=== PATIENT | male | born 1945 | race Caucasian/White ===

== ENCOUNTER 2016-09-12 09:10 | Day surgery (SDC) | payer OTHER, BC ==
[2016-09-07 13:09] VITALS: BMI 28.3
[~2016-09-12 09:10] MED LIST: BUPIVACAINE HCL/PF 0.5% (5MG/ML) 10 ML VIAL IJ ONE; LIDOCAINE HCL 1%, 10 MG/ML (20ML VIAL) IJ ONE
[2016-09-12 09:35] VITALS: TEMP 97.7
[2016-09-12] MEDS ORDERED: BUPIVACAINE HCL/PF 0.5% (5MG/ML) 10 ML VIAL ONE (10:23)
[2016-09-12] MEDS ORDERED: LIDOCAINE HCL 1%, 10 MG/ML (20ML VIAL) ONE (10:23)
[2016-09-12] MEDS ORDERED: oxyCODONE HCL 5 MG TABLET PO PRN (10:35)
[2016-09-12] MEDS ORDERED: ONDANSETRON 4 MG/2 ML VIAL IVPUSH PRN (10:35)
[2016-09-12] MEDS ORDERED: PROMETHAZINE HCL 25 MG/1 ML VIAL IVPUSH PRN (10:35)
[2016-09-12] MEDS ORDERED: PROPOFOL 20 ML ONE (10:43)
[2016-09-12] MEDS ORDERED: MIDAZOLAM HCL 2 MG/2 ML SINGLE DOSE VIAL ONE (10:43)
[2016-09-12] MEDS ORDERED: SUCCINYLCHOLINE CHLORIDE 200 MG/10 ML VIAL ONE (10:43)
[2016-09-12] MEDS ORDERED: ceFAZolin SODIUM 1 GM VIAL IVPB ONE (11:05)
[2016-09-12] MEDS ORDERED: LIDOCAINE HCL 1%, 10 MG/ML (20ML VIAL) IJ ONE (11:11)
[2016-09-12] MEDS ORDERED: LIDOCAINE HCL 1%, 10 MG/ML (20ML VIAL) NR ONE (11:11)
[2016-09-12] MEDS ORDERED: BUPIVACAINE HCL/PF 0.5% (5MG/ML) 10 ML VIAL IJ ONE ×2 (11:11)
--- NOTE | 2016-09-12 11:56 | OP ---
Operative Note - Note: Operative Date: 09/12/16 Pre-Operative Diagnosis: right CTS Operation: right CTR Post-Operative Diagnosis: Same as Pre-op Surgeon: Asher Hinton Anesthesiologist/MULTIFOCAL BUTTON GENERATOR: Cece Obrien MD Anesthesia: General, Local Specimens Removed: tenosynovium Estimated Blood Loss (mls): 0 Drains, Volume Out (mls): 0 Blood Volume Replaced (mls): 0 Fluid Volume Replaced (mls): 500 Operative Report Dictated: Yes
[2016-09-12 13:18] VITALS: BP 138/85; PULSE 56
--- NOTE | 2016-09-12 13:35 | SPEC ---
DATE OF OPERATION: 09/12/2016 PREOPERATIVE DIAGNOSIS: Right carpal tunnel syndrome and tenosynovitis. POSTOPERATIVE DIAGNOSIS: Right carpal tunnel syndrome and tenosynovitis. PROCEDURES: Right carpal tunnel release and tenosynovectomy. SURGEON: Asher Hinton MD ASSISTANTS: None. ANESTHESIA: MAC, local injection of 12 mL of 0.5% Marcaine and 1% lidocaine mix. ANESTHESIOLOGIST: Cece Obrien MD DRAINS: None. COMPLICATIONS: None. SPECIMEN: Tenosynovium, right wrist. BLOOD LOSS: None. BLOOD GIVEN: None. FLUID REPLACEMENT: 500 mL. INDICATIONS: This patient is a 71-year-old male with a preoperative diagnosis of right carpal tunnel syndrome and tenosynovitis. After understanding the potential risks, complications, alternatives and benefits of surgery versus nonsurgical treatment, the patient elected to undergo this procedure. DESCRIPTION OF PROCEDURE: The patient was brought to the operating room, peripheral IV placed and intravenous sedation was given. One gram of intravenous Ancef was given. MAC anesthesia was induced. A tourniquet was applied to the right upper arm and the right upper extremity was prepped and draped in sterile fashion. The entire case was done under 3.8 loupe magnification. A marking pen was utilized to elvira out a longitudinal incision in an already existing skin crease. Twenty mL of 0.5% Marcaine mixed with 1% lidocaine was injected in and around the surgical incision. The right upper extremity was elevated, exsanguinated with an Esmarch bandage, and the tourniquet inflated to 250 mmHg. A No. 15 scalpel blade was utilized to cut down through the skin. Subcutaneous hemostasis was achieved with the bipolar cautery. Dissection was done through the superficial palmar fascia. Self-retaining retractors were placed into the wound. Under direct visualization, the transverse carpal ligament was transected with a No. 15 scalpel blade, exposing the median nerve and the contents of the carpal tunnel. The distal and proximal extents of the release were completed with a Littler scissors and checked with irrigation and my small finger. They were seen to be complete. Limited dissection was done on the radial side of the median nerve and more extensive dissection was done on the ulnar side of the median nerve. The patients nerve was seen to be quite compressed by epineurium and therefore a limited epineurotomy was performed. A Ragnell retractor was used to gently retract the median nerve in a radial direction. The patient had a lot of tenosynovitis and therefore a tenosynovectomy was performed off all 9 flexor tendons. This was passed off the field as tenosynovium right wrist. The floor of the carpal tunnel was checked. There were no abnormal masses or ganglion cysts. The area was copiously irrigated and washed out and closure begun. Undyed 4-0 Vicryl was used to close the deep dermal layer. Final skin reapproximation was done with horizontal mattress 4-0 nylon sutures. The area was then washed and dried, covered with Xeroform, 4 x 4's, fluffs between the fingers, Webril and a 4-inch plaster roll was utilized to make a volar splint, which was then wrapped with Anton and Coban. The tourniquet was taken down after a total tourniquet time of 16 minutes. There were no complications during the case. The patient tolerated the procedure quite well and was brought to the ambulatory recovery room in stable condition. Patricia [id number]
--- NOTE | 2016-09-13 12:53 | PATH ---
Surgical Pathology Report Patient Name: RE CA [facility]. Rec. #: [id number] /Age/Gender: 1945 (Age: 71) / M Account: [id number] Location: [facility] Taken: 09/12/2016 Received: 09/12/2016 Reported: 09/13/2016 Physicians: Asher Hinton M.D. Specimen(s) Received TENOSYNOVIUM Clinical History Carpal tunnel right hand Final Diagnosis SOFT TISSUE, RIGHT HAND, TENOSYNOVIUM, CARPAL TUNNEL RELEASE: BENIGN TENOSYNOVIAL FIBROCONNECTIVE TISSUE WITH MYXOID DEGENERATION. Electronically Signed Williams Dailey M.D. Gross Description Received in formalin labeled "tenosynovium" is a 1.8 x 1.7 x 0.3 cm aggregate of morales-yellow, irregular portions of soft tissue, consistent with tenosynovium. This specimen is submitted in toto in one cassette. 09/12/201609/12/2016
== END 2016-09-12 13:22 | disposition home or self-care (01) ==
LOC: JASU-SURG 09:10
PROVIDERS: ATTEND Orthopaedic Surgery
PROC: 0LB50ZZ Excision of Right Lower Arm and Wrist Tendon, Open Approach (ICD-10-PCS; 2016-09-12)
PROC: 0LB70ZZ Excision of Right Hand Tendon, Open Approach (ICD-10-PCS; 2016-09-12)
PROC: 01N50ZZ Release Median Nerve, Open Approach (ICD-10-PCS; principal; 2016-09-12 10:30)
DX: G56.01 Carpal tunnel syndrome, right upper limb (principal); M65.9 Synovitis and tenosynovitis, unspecified
CPT/HCPCS: 88304-TC; 94760

== ENCOUNTER 2018-07-14 19:45 | Emergency (ER) | payer OTHER, BC ==
[2018-07-14] MEDS ORDERED: ACETAMINOPHEN 325 MG TABLET (FP) ONE (20:00)
[2018-07-14] MEDS ORDERED: SODIUM CHLORIDE 1,000 ML IV STA (20:03)
[2018-07-14] MEDS ORDERED: ACETAMINOPHEN 325 MG TABLET (FP) PO ONE (20:04)
--- NOTE | 2018-07-14 20:04 | PDOC ---
History of Present Illness - General Chief Complaint: Urinary Problem Stated Complaint: FEVER,URINARY PROBLEM Time Seen by Provider: 07/14/18 19:47 - History of Present Illness Initial Comments: 07/14/18 20:15 This 73 y.o man with a hx of DM, HTN, HLD, colon cancer(1988) who was referred here from Dr Green's office with probable UTI and fever to 102F. Since patient' s RT and chemo for colon ca, he has had urinary bladder dysfunction requiring self catheterization. He noted fever last night and cloudy urine today with fever measured to 102F with some shaking chills. Other than decreased appetite and haedache, he currently has no complaints. He states that he has had occasional UTIs (about 2-3 a year) since he began catheterizing. He had one admission for UTI related sepsis about 4 years ago. He has been seen by Dr Mckeon in the past; briefly had urinary bladder stimulator which was ineffective and was removed Past History - Past Medical History Allergies/Adverse Reactions: Allergies Allergy/AdvReac Type Severity Reaction Status Date / Time No Known Allergies Allergy Verified 07/14/18 20:02 Home Medications: Ambulatory Orders Metoprolol Succinate 25 mg PO 1/2 TAB DAILY tablet 02/11/15 Ascorbic Acid [Vitamin C] 500 mg PO DAILY 11/16/15 Multivitamin [Poly-Vitamin] 1 each PO DAILY 11/16/15 Aspirin [ASA -] 81 mg PO DAILY 09/07/16 Bimatoprost [Lumigan] 1 drop OU DAILY 09/07/16 Levofloxacin [Levaquin] 750 mg PO DAILY #10 tablet 07/15/18 Anemia: No Asthma: No Cancer: Yes (COLON 1988;FOLLOWED WITH CHEMO AND RT) Cardiac Disorders: No CVA: No COPD: No CHF: No Dementia: No Diabetes: No GI Disorders: Yes (HX GASTRITIS H/O COLON CANCER) Disorders: Yes (CATHETERIZES OF BLADDER) HTN: Yes Hypercholesterolemia: Yes Liver Disease: No Seizures: No Thyroid Disease: No - Surgical History Abdominal Surgery: Yes (1988 COLON RESCETION) Appendectomy: No Cardiac Surgery: No Cholecystectomy: No Lung Surgery: No Neurologic Surgery: No Orthopedic Surgery: Yes (LEFT KNEE SURGERY) - Suicide/Smoking/Psychosocial Hx Smoking History: Former smoker Have you smoked in the past 12 months: No Number of Cigarettes Smoked Daily: 0 If you are a former smoker, when did you quit?: 1972 Hx Alcohol Use: Yes Drug/Substance Use Hx: No Substance Use Type: Alcohol Hx Substance Use Treatment: No *Physical Exam - Physical Exam Comments: GENERAL: Awake, alert, and fully oriented, in no acute distress HEAD: No signs of trauma EYES: PERRLA, EOMI, sclera anicteric, conjunctiva clear ENT: Auricles normal inspection, hearing grossly normal, nares patent, oropharynx clear without exudates. Moist mucosa NECK: Normal ROM, supple, no lymphadenopathy, JVD, or masses LUNGS: Breath sounds equal, clear to auscultation bilaterally. No wheezes, and no crackles HEART: Regular rate and rhythm, normal S1 and S2, no murmurs, rubs or gallops ABDOMEN: Soft, nontender, normoactive bowel sounds. No guarding, no rebound. No masses EXTREMITIES: Normal range of motion, no edema. No clubbing or cyanosis. No cords, erythema, or tenderness NEUROLOGICAL: Cranial nerves II through XII grossly intact. Normal speech, normal gait SKIN: Warm, Dry, normal turgor, no rashes or lesions noted. ED Treatment Course - LABORATORY CBC & Chemistry Diagram: 07/14/18 20:09 07/14/18 20:09 *DC/Admit/Observation/Transfer Diagnosis at time of Disposition: Bladder dysfunction UTI (urinary tract infection) Qualifiers: Urinary tract infection type: site unspecified Hematuria presence: without hematuria Qualified Code(s): N39.0 - Urinary tract infection, site not specified - Discharge Dispostion Disposition: HOME Condition at time of disposition: Stable Decision to Admit order: No - Prescriptions Prescriptions: Levofloxacin [Levaquin] 750 mg PO DAILY #10 tablet - Referrals Referrals: Keenan Green MD [Primary Care Provider] - - Patient Instructions Printed Discharge Instructions: Urinary Tract Infection Additional Instructions: drink plenty of water Levaquin 750 mg daily for 10 days return to ER if you have persistent fever or develop abdominal/flank pain/ vomiting followup with Dr Green within 48 hours - Post Discharge Activity
[2018-07-14 20:28] LABS: HEMATOCRIT 43.8 % (35.4-49); HEMOGLOBIN 14.8 GM/dl (11.7-16.9); MCH 28.3 pg (25.7-33.7); MCHC 33.8 g/dl (32.0-35.9); MEAN CELL VOLUME 83.8 fl (80-96); MEAN PLT VOLUME 9.1 fl (7.5-11.1); PLATELET COUNT 138 K/MM3 (134-434); RBC 5.22 M/mm3 (4.00-5.60); RDW 13.2 % (11.9-15.9); WHITE BLOOD COUNT 11.1 K/mm3 (4.0-10.8)
[2018-07-14 20:35] LABS: INR 1.27 (0.82-1.09); PROTHROMBIN TIME (PATIENT) 14.1 SEC (10.2-13.0)
[2018-07-14 20:40] LABS: ALBUMIN 3.8 g/dl (3.4-5.0); ALK PHOS 59 U/L (45-117); ANION GAP 14 MMOL/L (8-16); BILIRUBIN,TOTAL 1.6 mg/dl (0.2-1); BLOOD UREA NITROGEN 16 mg/dl (7-18); CALCIUM 9.2 mg/dl (8.5-10); CHLORIDE 98 mmol/L (98-107); CO2 23 mmol/L (21-32); CREATININE 1.2 mg/dl (0.55-1.3); GLUCOSE,RANDOM 130 mg/dl (74-106); POTASSIUM 3.8 mmol/L (3.5-5.1); SGOT/AST 21 U/L (15-37); SGPT/ALT 26 U/L (13-61); SODIUM 135 mmol/L (136-145); TOT PROT 7.1 g/dl (6.4-8.2)
[2018-07-14 20:43] VITALS: BMI 27.9
[2018-07-14] MEDS ORDERED: PIPERACILLIN/TAZOB 4.5 GM 4.5 GM in DEXTROSE 5%-WATER 100 ML IVPB ONE (21:13)
[2018-07-14] MEDS ORDERED: PIPERACILLIN/TAZOBACTAM 4.5 GM VIAL IVPB ONE (21:13)
[2018-07-14 21:44] LABS: PLATELET ESTIMATE ADEQUATE
[2018-07-14 23:43] VITALS: BP 148/86; PULSE 78; TEMP 99.2
--- NOTE | 2018-07-15 11:40 | EKG ---
Test Reason : Blood Pressure : / mmHG Vent. Rate : 087 BPM Atrial Rate : 087 BPM P-R Int : 180 ms QRS Dur : 104 ms QT Int : 372 ms P-R-T Axes : 023 -42 025 degrees QTc Int : 447 ms NORMAL SINUS RHYTHM LEFT AXIS DEVIATION INCOMPLETE RIGHT BUNDLE BRANCH BLOCK VOLTAGE CRITERIA FOR LEFT VENTRICULAR HYPERTROPHY ABNORMAL ECG Confirmed by Virgilio Downs MD ([id number]) on 07/15/2018 11:40:05 AM Referred By: Confirmed By:Virgilio Downs MD
== END 2018-07-15 00:19 | disposition home or self-care (01) ==
LOC: FER 19:45
PROC: 3E03329 Introduction of Other Anti-infective into Peripheral Vein, Percutaneous Approach (ICD-10-PCS; principal; 2018-07-14)
PROC: 3E0337Z Introduction of Electrolytic and Water Balance Substance into Peripheral Vein, Percutaneous Approach (ICD-10-PCS; 2018-07-14)
DX: N31.9 Neuromuscular dysfunction of bladder, unspecified (principal); N39.0 Urinary tract infection, site not specified; I10 Essential (primary) hypertension; E78.5 Hyperlipidemia, unspecified; E11.9 Type 2 diabetes mellitus without complications; Z85.038 Personal history of other malignant neoplasm of large intestine; Z92.3 Personal history of irradiation; Z92.21 Personal history of antineoplastic chemotherapy
CPT/HCPCS: 36415; 71045-TC-FY; 80053; 81003; 81015; 83605; 85025; 85610; 87040; 87086; 87186; 93005; 99282-25; J7030

== ENCOUNTER 2019-09-23 10:34 | Inpatient (IN) | payer OTHER, BC ==
[2019-09-15 10:32] VITALS: BMI 28.4
[2019-09-23] MEDS ORDERED: VANCOMYCIN 1,000 MG VIAL (RESTRICTED TO ID ONLY) ONE (10:44)
[2019-09-23] MEDS ORDERED: ceFAZolin SODIUM 1 GM VIAL ONE (11:45)
[2019-09-23] MEDS ORDERED: PROPOFOL 20 ML ONE ×5 (12:12)
[2019-09-23] MEDS ORDERED: BUPIVACAINE HCL/PF 0.5% (5MG/ML) 10 ML VIAL ONE (12:12)
[2019-09-23] MEDS ORDERED: MIDAZOLAM HCL 2 MG/2 ML SINGLE DOSE VIAL ONE (12:24)
[2019-09-23] MEDS ORDERED: BUPIVICAINE 0.25%/MORPH PF/KETOROLAC - 51ML DISP.SYRINGE IA ONE (14:32)
[2019-09-23] MEDS ORDERED: ONDANSETRON 4 MG/2 ML VIAL IVPUSH PRN (15:13)
[2019-09-23] MEDS ORDERED: oxyCODONE HCL 5 MG TABLET PO PRN (15:13)
[2019-09-23] MEDS ORDERED: HYDROmorphone HCL CARPU-JECT 1 MG/1 ML DISP.SYRIN IVPB PRN (15:18)
[2019-09-23] MEDS: LACTATED RINGERS SOLUTION 1,000 ML IV SCH (15:30)
[2019-09-23] MEDS ORDERED: ceFAZolin 2 GRAM PREMIX BAG IVPB SCH (18:00)
[2019-09-23] MEDS ORDERED: PT OWN MED DRAWER 7, Y5N ONE (21:06)
[2019-09-23] MEDS: ceFAZolin 2 GRAM PREMIX BAG IVPB SCH ×2 (21:19→21:35)
[2019-09-23] MEDS: SENNOSIDES/DOCUSATE COMBO (SENNA PLUS) TABLET (UD) PO SCH (21:19)
[2019-09-23] MEDS: ATORVASTATIN CA 40 MG TABLET (FP) PO SCH (21:19)
[2019-09-23] MEDS: LATANOPROST 0.005% OPHTH SOLN 2.5ML BOTTLE OU SCH (21:32)
[2019-09-23] MEDS: ACETAMINOPHEN 325 MG TABLET (FP) PO PRN (21:49)
[2019-09-23] MEDS: oxyCODONE HCL 5 MG TABLET PO PRN (21:50)
[2019-09-24] MEDS: oxyCODONE HCL 5 MG TABLET PO PRN ×4 (02:14→19:53)
[2019-09-24] MEDS: ceFAZolin 2 GRAM PREMIX BAG IVPB SCH ×3 (06:43→21:17)
[2019-09-24] MEDS: ACETAMINOPHEN 325 MG TABLET (FP) PO PRN (06:52)
[2019-09-24 07:58] LABS: HEMATOCRIT 41.8 % (35.4-49); HEMOGLOBIN 14.3 GM/dl (11.7-16.9); MCHC 34.3 g/dl (32.0-35.9); MEAN CELL VOLUME 81.6 fl (80-96); MEAN PLT VOLUME 8.6 fl (7.5-11.1); PLATELET COUNT 192 K/MM3 (134-434); RBC 5.12 M/mm3 (4.00-5.60); RDW 13.6 % (11.9-15.9); WHITE BLOOD COUNT 7.2 K/mm3 (4.0-10.8)
[2019-09-24 08:01] LABS: CALCIUM 9.3 mg/dl (8.5-10); CREATININE 1.2 mg/dl (0.55-1.3); POTASSIUM 4.2 mmol/L (3.5-5.1)
--- NOTE | 2019-09-24 08:08 | PN ---
Progress Note, Physician Chief Complaint: Pt c/o pain, controlled by medication. Denies numbness/tingling - Current Medication List Current Medications: Active Medications Acetaminophen (Tylenol -) 650 mg PO Q4H PRN PRN Reason: FEVER Last Admin: 09/24/19 06:52 Dose: 650 mg Documented by: Amlodipine Besylate (Norvasc -) 5 mg PO DAILY [facility] Atorvastatin Calcium (Lipitor -) 40 mg PO HS [facility] Last Admin: 09/23/19 21:19 Dose: 40 mg Documented by: Cefazolin Sodium/Dextrose (Ancef 2 Gm Premixed Ivpb -) 2 gm IVPB Q8H [facility] Last Admin: 09/24/19 06:43 Dose: 2 gm Documented by: Enoxaparin Sodium (Lovenox -) 40 mg SQ DAILY [facility] Hydromorphone HCl (Dilaudid Injection -) 1 mg IVPB Q4H PRN PRN Reason: PAIN LEVEL 7 - 10 Lactated Ringer's (Lactated Ringers Solution) 1,000 mls @ 75 mls/hr IV ASDIR [facility] Last Admin: 09/23/19 15:30 Dose: 75 mls/hr Documented by: Latanoprost (Xalatan 0.005% Eye Drops -) 1 drop OU [facility] Last Admin: 09/23/19 21:32 Dose: 1 drop Documented by: Metformin HCl (Glucophage -) 500 mg PO DAILY@0800 [facility] Metoprolol Succinate (Toprol Xl -) 12.5 mg PO DAILY [facility] Ondansetron HCl (Zofran Injection) 4 mg IVPUSH Q6H PRN PRN Reason: NAUSEA AND/OR VOMITING Oxycodone HCl (Roxicodone -) 10 mg PO Q4H PRN PRN Reason: PAIN LEVEL 7 - 10 Last Admin: 09/24/19 02:14 Dose: 10 mg Documented by: Oxycodone HCl (Roxicodone -) 5 mg PO Q3H PRN PRN Reason: PAIN LEVEL 4 - 6 Last Admin: 09/24/19 06:51 Dose: 5 mg Documented by: Prednisolone Sodium Phosphate (Orapred (5mg/5ml) Oral Solution -) 5 mg PO DAILY [facility] Senna/Docusate Sodium (Pericolace -) 2 tablet PO BID [facility] Last Admin: 09/23/19 21:19 Dose: 2 tablet Documented by: - Objective Vital Signs: Vital Signs Temperature 98.9 F 09/24/19 06:21 Pulse Rate 70 09/24/19 06:56 Respiratory Rate 18 09/24/19 06:21 Blood Pressure 143/75 09/24/19 06:56 O2 Sat by Pulse Oximetry (%) 96 09/24/19 06:21 Constitutional: Yes: Well Nourished, No Distress Musculoskeletal: Yes: Other (R hip dressing CDI, RLE DNVI) Wound/Incision: Yes: Clean/Dry ...Motor Strength: WNL Labs: CBC, BMP 09/24/19 06:57 09/24/19 06:57 Problem List - Problems (1) Hip joint replacement status Code(s): Z96.649 - PRESENCE OF UNSPECIFIED ARTIFICIAL HIP JOINT Qualifiers: Laterality: right Qualified Code(s): Z96.641 - Presence of right artificial hip joint Assessment/Plan POD1 R SHAKIRA PT/OT, WBAT, hip precautions Lovenox Dispo plan home tomorrow
[2019-09-24] MEDS: metFORMIN HCL 500 MG TABLET (FP) PO SCH (09:00)
[2019-09-24] MEDS: metoPROLOL SUCCINATE 25 MG TAB.SR.24H (FP) PO SCH (10:55)
[2019-09-24] MEDS: SENNOSIDES/DOCUSATE COMBO (SENNA PLUS) TABLET (UD) PO SCH ×2 (10:55→21:17)
[2019-09-24] MEDS: amLODIPine BESYLATE 5 MG TABLET (FP) PO SCH (10:56)
[2019-09-24] MEDS: prednisoLONE SODIUM PHOSPHATE 5 MG/5 ML ORAL SOLN BOTTLE PO SCH (10:56)
[2019-09-24] MEDS: ENOXAPARIN NA (PORCINE) 40 MG/0.4 ML DISP.SYRIN SQ SCH (10:56)
--- NOTE | 2019-09-24 12:15 | PN ---
Progress Note (short form) - Note Progress Note: Anesthesia postop note 74 y/o M s/p spinal anesthesia for moriah hip replacement POD#1, vss, aaox3, pain well controlled, sensory motor intact distally. No anesthesia complications.
--- NOTE | 2019-09-24 14:00 | OP ---
DATE OF OPERATION: 09/23/2019 SURGEON: Pauly Mccarty MD DATA ADMINISTRATOR: SANCHO Freedman PREOPERATIVE DIAGNOSIS: Right hip osteoarthritis. POSTOPERATIVE DIAGNOSIS: Right hip osteoarthritis. PROCEDURE: Right total hip arthroplasty with robotic assistance. ANESTHESIA: Regional and spinal. ESTIMATED BLOOD LOSS: 50. IMPLANTS USED: Jose Tritanium cluster acetabular shell size 56 mm, 10-degree liner for a 36-mm head, 36-mm +5 ceramic head, Accolade II size 7 127-degree femoral stem. DRAINS: None. COMPLICATIONS: None. DISPOSITION: Stable to recovery following procedure. INDICATIONS: This is a 74-year-old man with severe osteoarthritis of his right hip refractory to conservative measures. It affects his activities of daily living and quality of life. He wishes to proceed with an elective total hip arthroplasty. After thorough discussion of the risks and benefits with the patient regarding surgical treatment including infection, stiffness, dislocation, limb length discrepancy, neurovascular injury, he understands and wishes to proceed. Preoperative planning was performed with CT scanning for the LISA protocol and he underwent preoperative medical evaluation. DETAILS OF PROCEDURE: The patient was identified in the preoperative area. He underwent a regional block. He was given 2 g of Ancef IV. He was taken to the operating room and placed on the operating room table, sitting up. He was given a spinal anesthetic. He was then placed in the lateral position and held in place with a peg board with bony prominences well-padded and an axillary roll in place. The right hip and lower extremity were prepped and draped in the standard sterile fashion. He received 1 g of tranexamic acid during the incision and another during closure. The 3 pins were placed percutaneously in the iliac crest initially for the acetabular array. An approximately 11-cm curved incision was made for the posterior approach to the right hip. The fascia was incised and the short external rotators and capsule were divided off of the posterior neck of the femur. The check points were placed in the greater trochanter and on the acetabulum. A Steinmann pin was used as a superior retractor. The hip was tested and then the hip was dislocated. The neck cut was made. A small anterior capsulotomy was performed through which a retractor was placed. The registration points were performed for the MAKOplasty procedure. Excess soft tissue from the labrum and pulvinar tissue was excised. The robotic arm was placed and used for acetabular reaming. A size 52 was reamed first for medialization and then the 56-mm in the appropriate version as per planned previously. The robotic arm was then used to insert the acetabular shell with the cluster holes superior and posterior quadrants. This was well seated and well fixed. No screws were placed. Following this, a 10-degree elevator liner was placed with the elevation posterior and superior. The proximal femur was then prepared with the box osteotome, canal finder, and serial broaches for the Accolade up to size 7, which had good fit and fill. Different head lengths were trialed and a +5 allowed for jehovah's witness of length and excellent stability. Trials were removed and the size 7 Accolade stem was then placed and seated. The +5 ceramic head was placed on the stem and the Ludwig taper engaged. The hip was reduced again with jehovah's witness of limb length and stability also checked via the robot. The wound was copiously irrigated with pulsatile lavage. The checkpoints were removed as well as the pins from the acetabulum. The pyriformis and posterior capsule were reapproximated through a drill hole in the greater trochanter. Quadratus femoris was also sutured to the vastus lateralis tendon. The fascia was closed with number 1 Vicryl suture. Skin was closed with 2-0 Vicryl and hector. The 3 stab incisions proximally were closed with 4-0 nylon. Sterile dressings were applied. The patient was placed supine. Abduction pillow was placed. An x-ray was taken in the room. He was then transferred to his bed and taken to the recovery room in stable condition. PAULY MCCARTY M.D. RAJANI/[id number]
[2019-09-24] MEDS: LACTATED RINGERS SOLUTION 1,000 ML IV SCH (19:25)
[2019-09-24] MEDS: ATORVASTATIN CA 40 MG TABLET (FP) PO SCH (21:17)
[2019-09-24] MEDS: LATANOPROST 0.005% OPHTH SOLN 2.5ML BOTTLE OU SCH (21:18)
[2019-09-25] MEDS: oxyCODONE HCL 5 MG TABLET PO PRN ×3 (02:11→11:14)
[2019-09-25] MEDS: ACETAMINOPHEN 325 MG TABLET (FP) PO PRN (06:38)
[2019-09-25] MEDS: ceFAZolin 2 GRAM PREMIX BAG IVPB SCH ×2 (06:38→13:03)
--- NOTE | 2019-09-25 07:46 | PN ---
Progress Note (short form) - Note Progress Note: Pain controlled. No complaints. R hip dressing CDI DNVI POD2 R SHAKIRA PT/OT, hip precautions dispo Aspirin on D/C Problem List - Problems (1) Hip joint replacement status Code(s): Z96.649 - PRESENCE OF UNSPECIFIED ARTIFICIAL HIP JOINT Qualifiers: Laterality: right Qualified Code(s): Z96.641 - Presence of right artificial hip joint
[2019-09-25] MEDS ORDERED: PT OWN MED DRAWER 7, Y5N ONE (09:00)
[2019-09-25 09:20] VITALS: BP 136/72; PULSE 76; TEMP 97.7
[2019-09-25] MEDS: amLODIPine BESYLATE 5 MG TABLET (FP) PO SCH (09:20)
[2019-09-25] MEDS: metFORMIN HCL 500 MG TABLET (FP) PO SCH (09:20)
[2019-09-25] MEDS: metoPROLOL SUCCINATE 25 MG TAB.SR.24H (FP) PO SCH (09:20)
[2019-09-25] MEDS: SENNOSIDES/DOCUSATE COMBO (SENNA PLUS) TABLET (UD) PO SCH (09:21)
[2019-09-25] MEDS: ENOXAPARIN NA (PORCINE) 40 MG/0.4 ML DISP.SYRIN SQ SCH (09:21)
[2019-09-25] MEDS: prednisoLONE SODIUM PHOSPHATE 5 MG/5 ML ORAL SOLN BOTTLE PO SCH (09:25)
--- NOTE | 2019-09-25 12:59 | HP ---
CHIEF COMPLAINT: Hip pain Surgeon: Dr. Mccarty HISTORY OF PRESENT ILLNESS: 74 year-old male with a PMH significant for HTN, HLD, Type II NIDDM, colon cancer, chronic urinary retention, and right hip OA s/p right total hip arthroplasty on 09/23/[address] Avel Mccarty. Recent Travel: No PAST MEDICAL HISTORY: Hypertension Hyperlipidemia Type II NIDDM Colon cancer s/p RT and chemo Urinary retention (self-cath)/recurrent UTIs PAST SURGICAL HISTORY: Right carpal tunnel release 2016 Colon resection 1988 Left meniscus repair 2007 Social History: Smoking: quit 45 years ago Alcohol: no Drugs:no Family history: reviewed and non-contributory Allergies No Known Allergies Allergy (Verified 07/14/18 20:02) HOME MEDICATIONS: Home Medications Medication Instructions Recorded Metoprolol Succinate 25 mg PO 1/2 TAB DAILY tablet 02/11/15 Ascorbic Acid [Vitamin C] 500 mg PO DAILY 11/16/15 Multivitamin [Poly-Vitamin] 1 each PO DAILY 11/16/15 Aspirin [ASA -] 81 mg PO DAILY 09/07/16 Latanoprost 0.005% Eye Drops 1 drop OU HS 09/15/19 [Xalatan 0.005% Eye Drops -] Metformin HCl [Glucophage] 500 mg PO DAILY 09/15/19 Prednisolone [Millipred Dp] 5 mg PO DAILY 09/15/19 REVIEW OF SYSTEMS CONSTITUTIONAL: Absent: fever, chills, diaphoresis, generalized weakness, malaise, loss of appe tite, weight change HEENT: Absent: rhinorrhea, nasal congestion, throat pain, throat swelling, difficulty swallowing, mouth swelling, ear pain, eye pain, visual changes CARDIOVASCULAR: Absent: chest pain, syncope, palpitations, irregular heart rate, lightheadedness, peripheral edema RESPIRATORY: Absent: cough, shortness of breath, dyspnea with exertion, orthopnea, wheezing, stridor, hemoptysis GASTROINTESTINAL: Absent: abdominal pain, abdominal distension, nausea, vomiting, diarrhea, constipation, melena, hematochezia GENITOURINARY: Absent: dysuria, frequency, urgency, hesitancy, hematuria, flank pain, genital pain MUSCULOSKELETAL: Absent: myalgia, arthralgia, joint swelling, back pain, neck pain SKIN: Absent: rash, itching, pallor HEMATOLOGIC/IMMUNOLOGIC: Absent: easy bleeding, easy bruising, lymphadenopathy, frequent infections ENDOCRINE: Absent: unexplained weight gain, unexplained weight loss, heat intolerance, cold intolerance NEUROLOGIC: Absent: headache, focal weakness or paresthesias, dizziness, unsteady gait, seizure, mental status changes, bladder or bowel incontinence PSYCHIATRIC: Absent: anxiety, depression, suicidal or homicidal ideation, hallucinations. PHYSICAL EXAMINATION Vital Signs - 24 hr 09/24/19 09/24/19 09/25/19 14:58 18:00 01:20 Temperature 98.5 F 98.9 F Pulse Rate 77 75 Respiratory 18 18 Rate Blood Pressure 140/76 162/85 O2 Sat by Pulse 95 94 L 96 Oximetry (%) 09/25/19 09/25/19 06:00 09:18 Temperature 98.9 F 97.7 F Pulse Rate 72 76 Respiratory 18 20 Rate Blood Pressure 166/81 136/72 O2 Sat by Pulse 94 L 96 Oximetry (%) GENERAL: Awake, alert, and fully oriented, in no acute distress. HEAD: Normal with no signs of trauma. EYES: Pupils equal, round and reactive to light, extraocular movements intact, sclera anicteric, conjunctiva clear. No lid lag. LUNGS: Breath sounds equal, clear to auscultation bilaterally. No wheezes, and no crackles. No accessory muscle use. HEART: Regular rate and rhythm, normal ABDOMEN: Soft, nontender, not distended UPPER EXTREMITIES: 2+ pulses, warm, well-perfused. No cyanosis. No clubbing. No peripheral edema. LOWER EXTREMITIES: Right hip surgical dressing c/d/i NEUROLOGICAL: Cranial nerves II-XII intact. Normal speech. Normal gait. ASSESSMENT/PLAN 74 year-old male with a PMH significant for HTN, HLD, Type II NIDDM, colon cancer, chronic urinary retention, and right hip OA s/p right total hip arthroplasty on 09/23/[address] Avel Mccarty. Right total hip arthroplasty --POD#2 --perioperative antibiotics complete --pain well-managed with PO meds --PT/OT, WBAT, hip precautions --lovenox Visit type - Medication Review Med list reviewed for High Risk Meds patients 65 and older: Yes - Emergency Visit Emergency Visit: No - New Patient This patient is new to me today: Yes Date on this admission: 10/10/19 - Critical Care Critical Care patient: No
--- NOTE | 2019-09-25 13:16 | DS ---
Physical Exam: SUBJECTIVE: Patient seen and examined OBJECTIVE: Vital Signs Period Temp Pulse Resp BP Sys/Baker Pulse Ox Last 24 Hr 97.7 F-98.9 F 72-77 18-20 136-166/72-85 94-96 PHYSICAL EXAM GENERAL: Awake, alert, and fully oriented, in no acute distress. HEAD: Normal with no signs of trauma. EYES: Pupils equal, round and reactive to light, extraocular movements intact, sclera anicteric, conjunctiva clear. No lid lag. LUNGS: Breath sounds equal, clear to auscultation bilaterally. No wheezes, and no crackles. No accessory muscle use. HEART: Regular rate and rhythm, normal ABDOMEN: Soft, nontender, not distended UPPER EXTREMITIES: 2+ pulses, warm, well-perfused. No cyanosis. No clubbing. No peripheral edema. LOWER EXTREMITIES: Right hip surgical dressing c/d/i NEUROLOGICAL: Cranial nerves II-XII intact. Normal speech. Normal gait. LABS CBCD WBC 7.2 K/mm3 (4.0-10.8) 09/24/19 06:57 RBC 5.12 M/mm3 (4.00-5.60) 09/24/19 06:57 Hgb 14.3 GM/dl (11.7-16.9) 09/24/19 06:57 Hct 41.8 % (35.4-49) 09/24/19 06:57 MCV 81.6 fl (80-96) 09/24/19 06:57 MCHC 34.3 g/dl (32.0-35.9) 09/24/19 06:57 RDW 13.6 % (11.9-15.9) 09/24/19 06:57 Plt Count 192 K/MM3 (134-434) 09/24/19 06:57 MPV 8.6 fl (7.5-11.1) 09/24/19 06:57 CMP Sodium 135 mmol/L (136-145) L 09/24/19 06:57 Potassium 4.2 mmol/L (3.5-5.1) 09/24/19 06:57 Chloride 98 mmol/L (98-107) 09/24/19 06:57 Carbon Dioxide 26 mmol/L (21-32) 09/24/19 06:57 Anion Gap 11 MMOL/L (8-16) 09/24/19 06:57 BUN 20.0 mg/dl (7-18) H 09/24/19 06:57 Creatinine 1.2 mg/dl (0.55-1.3) 09/24/19 06:57 Calcium 9.3 mg/dl (8.5-10) 09/24/19 06:57 HOSPITAL COURSE: Date of Admission:09/23/19 Date of Discharge: 09/25/19 74 year-old male with a PMH significant for HTN, HLD, Type II NIDDM, colon cancer, chronic urinary retention, and right hip OA s/p right total hip arthroplasty on 09/23/[address] Avel Mccarty. Right total hip arthroplasty --uneventful postoperative course --perioperative antibiotics complete --pain well-managed with PO meds --PT/OT, WBAT, hip precautions --ASA BID x 3 weeks Minutes to complete discharge: 35 Discharge Summary Problems reviewed: Yes Reason For Visit: RIGHT HIP OSTEOARTHRITIS Current Active Problems Hip joint replacement status (Acute) Condition: Improved - Instructions Diet, Activity, Other Instructions: You are to take aspirin 81mg twice a day for 3 weeks. A prescription has been sent to your pharmacy for oxycodone. Take this medication as prescribed. Drink plenty of fluids. You have a followup appointment with your surgeon Dr. Mccarty next Saturday. Referrals: Avel Mccarty MD [Staff Physician] - Disposition: VNS/HOME HEALTH CARE - Home Medications Comprehensive Discharge Medication List: Ambulatory Orders Metoprolol Succinate 25 mg PO 1/2 TAB DAILY tablet 02/11/15 Ascorbic Acid [Vitamin C] 500 mg PO DAILY 11/16/15 Multivitamin [Poly-Vitamin] 1 each PO DAILY 11/16/15 Latanoprost 0.005% Eye Drops [Xalatan 0.005% Eye Drops -] 1 drop OU HS 09/15/19 Metformin HCl [Glucophage] 500 mg PO DAILY 09/15/19 Prednisolone [Millipred Dp] 5 mg PO DAILY 09/15/19 Oxycodone HCl [Roxicodone] 5 mg PO Q6H #20 tablet MDD 4 09/25/19 Prescription Drug Monitoring Program (I-STOP) results: I-STOP not reviewed This patient is new to me today: No Emergency Visit: No Critical Care patient: No - Discharge Referral Referred to [facility] Med P.C.: No
--- NOTE | 2019-09-25 18:17 | PATH ---
Surgical Pathology Report Patient Name: RE CA Med. Rec. #: [id number] /Age/Gender: 1945 (Age: 74) / M Account: [id number] Location: [facility] MED-SURG Taken: 09/23/2019 Received: 09/23/2019 Reported: 09/25/2019 Physicians: Avel Mccarty M.D. Specimen(s) Received RIGHT FEMORAL HEAD Clinical History Right hip osteoarthritis Final Diagnosis RIGHT FEMORAL HEAD, RESECTION: DEGENERATIVE JOINT DISEASE, RIGHT HIP. Electronically Signed Chiquis Oliver M.D. Gross Description Received in formalin, labeled "right femoral head," is a 5.0 x 5.0 x 4.6 cm. femoral head with a 1.4 cm in length portion of femoral neck attached. The margin of resection is smooth. There is a 4.0 cm in greatest dimension area of eburnation present. The remaining articular surface is morales-yellow, granular and focally lifting away from the underlying bone. The underlying trabecular bone is yellow and focally necrotic. A commissary representative section is submitted in one cassette, following decalcification. /09/24/2019 [facility]/09/24/2019
== END 2019-09-25 13:38 | disposition home health service (06) | DRG 470 ==
LOC: FM/S 10:34
PROVIDERS: ADMIT Orthopaedic Surgery; ATTEND Orthopaedic Surgery
PROC: 8E0W0CZ Robotic Assisted Procedure of Trunk Region, Open Approach (ICD-10-PCS; 2019-09-23)
PROC: 0SR90J9 Replacement of Right Hip Joint with Synthetic Substitute, Cemented, Open Approach (ICD-10-PCS; principal; 2019-09-23 13:23)
DX: M16.11 Unilateral primary osteoarthritis, right hip (principal); E11.9 Type 2 diabetes mellitus without complications; I10 Essential (primary) hypertension; E78.5 Hyperlipidemia, unspecified; R33.9 Retention of urine, unspecified; Z85.038 Personal history of other malignant neoplasm of large intestine
CPT/HCPCS: 36415; 73502-TC-RT-FY; 80048; 82962; 85027; 88304-TC; 88311-TC; 94760; 97116-GP; 97163-GP

== ENCOUNTER 2020-01-14 07:57 | Day surgery (SDC) | payer OTHER, BC ==
--- OUTSIDE RECORDS SUMMARY | 2020-01-04 08:04 | XMS ---
:1945 Author Organization [facility] Care Team Providers Name Role Phone Keenan Green Unavailable Fader, M Unavailable Fader, M Unavailable Fader, M Unavailable Fader, M Unavailable Fader, M Unavailable Fader, M Unavailable Fader, M Unavailable Fader, M Unavailable Fader, M Unavailable Fader, M Unavailable Fader, M Unavailable Fader, M Unavailable Fader, M Unavailable Re-disclosure Warning The records that you are about to access may contain information from federally- assisted alcohol or drug abuse programs. If such information is present, then the following federally mandated warning applies: This information has been disclosed to you from records protected by federal confidentiality rules (42 CFR part 2). The federal rules prohibit you from making any further disclosure of this information unless further disclosure is expressly permitted by the written consent of the person to whom it pertains or as otherwise permitted by 42 CFR part 2. A general authorization for the release of medical or other information is NOT sufficient for this purpose. The Federal rules restrict any use of the information to criminally investigate or prosecute any alcohol or drug abuse patient.The records that you are about to access may contain highly sensitive health information, the redisclosure of which is protected by Article 27-F of the [facility] Public Health law. If you continue you may haveaccess to information: Regarding HIV / AIDS; Provided by facilities licensed or operated by the [facility] Office of Mental Health; or Provided by the [facility] Office for People With Developmental Disabilities. If such information is present, then the following [facility] mandated warning applies: This information has been disclosed to you from confidential records which are protected by state law. State law prohibits you from making any further disclosure of this information without the specific written consent of the person to whom it pertains, or as otherwise permitted by law. Any unauthorized further disclosure in violation of state law may result in a fine or long-term sentence or both. A general authorization for the release of medical or other information is NOT sufficient authorization for further disclosure. Encounters Encounter Providers Location Date Indications Data Source(s ) Attender: Keenan 12/30/2019 [facility] ( [facility] 12:00:00 AM EDT [facility], PC) Office Attender: Keenna Green 12/30/2019 12:00:00 AM E DT [facility] ([facility] Office Attender: Keenan Green 12/30/2019 12:00:00 AM E DT [facility] ([facility] Office Attender: Keenan Green 12/30/2019 12:00:00 AM E DT [facility] ([facility] Office Attender: Keenan Green 12/30/2019 12:00:00 AM E DT [facility] ([facility] Office Attender: Keenan Green 12/30/2019 12:00:00 AM E DT [facility] ([facility] Office Attender: Keenan Green 12/30/2019 12:00:00 AM E DT [facility] ([facility] Office Attender: Keenan Green 12/30/2019 12:00:00 AM E DT [facility] ([facility] Office Attender: Keenan Green 09/08/2019 12:00:00 AM E DT [facility] ([facility] Office Attender: Keenan Green 09/08/2019 12:00:00 AM E DT [facility] ([facility] Office Attender: Keenan Green 09/08/2019 12:00:00 AM E DT [facility] ([facility] Office Attender: Keenan Green 09/08/2019 12:00:00 AM E DT [facility] ([facility] Office Attender: Keenan Green 09/08/2019 12:00:00 AM E DT [facility] ([facility] Office Attender: Keenan Green 09/08/2019 12:00:00 AM E DT [facility] ([facility] Office Attender: Keenan Green 09/08/2019 12:00:00 AM E DT [facility] ([facility] Office Attender: Keenan Green 09/08/2019 12:00:00 AM E DT [facility] ([facility] Office Attender: Keenan Green 09/08/2019 12:00:00 AM E DT [facility] ([facility] Office Attender: Keenan Green 09/08/2019 12:00:00 AM E DT [facility] ([facility] Office Attender: Keenan Green 09/08/2019 12:00:00 AM E DT [facility] ([facility]) Office Immunizations Vaccine Date Status Description Data Source(s) pneumococcal 02/10/2019 completed [facility] ([facility] polysaccharide PPV23 12:00:00 AM EST [facility], PC) pneumococcal 02/10/2019 completed [facility] ([facility] polysaccharide PPV23 12:00:00 AM EST [facility], PC) Medications Medication Brand Start Product Dose Route Administrative Pharmacy [facility] Indications Reaction Description Data Name Date Form Instructions Instructions Source(s) 24 HR METOPR 12/29/ TABLET, 90 complet METOPROLO L [facility] (St metoprolol OLOL:2019 EXTENDED ed Jerzy n's succinate 61670 12:00: RELEASE Medi donald, 25 MG 00 AM PC) Extended EDT Release Oral Tablet METOPROLOL: [id number] Amlodipine AMLODI 12/06/ TABLET 90 complet AMLOD IPINE [facility] (St 5 MG Oral PINE:1 2019 ed [facility] Tablet 93078 12:00: Medical, AMLODIPINE: 00 AM PC) [id number] EDT doxycycline DOXYCY 11/30/ CAPSULE 20 complet DOX YCYCLINE [facility] (St hyclate 100 BHATT: 2019 ed [facility] MG Oral [id number] 12:00: Medical, Capsule 8 00 AM PC) DOXYCYCLINE EDT :[id number] Amoxicillin AMOXIC 11/30/ CAPSULE 30 complet IFEANYI XICILLIN [facility] (St 500 MG Oral ILLIN: 2019 ed [facility] Capsule 040516 12:00: Medical, AMOXICILLIN 00 AM PC) :[id number] EDT Prednisone PREDNI 11/23/ TABLET 90 complet PREDN ISONE [facility] (St 5 MG Oral SONE:3 2019 ed [facility] Tablet 62624 12:00: Medical, PREDNISONE: 00 AM PC) [id number] EDT atorvastati ATORVA 10/18/ TABLET 90 complet ATOR VASTATIN [facility] (St n 40 MG STATIN 2019 ed [facility] Oral Tablet :89139 12:00: Medi donald, ATORVASTATI 1 00 AM PC) N:[id number] EDT Famotidine FAMOTI 10/08/ TABLET 90 complet FAMOT IDINE [facility] (St 40 MG Oral DINE:2 2019 ed [facility] Tablet 16057 12:00: Medical, FAMOTIDINE: 00 AM PC) [id number] EDT Metformin METFOR 10/08/ TABLET 90 complet METFOR MIN [facility] (St hydrochlori MIN:86 2019 ed [facility] de 500 MG 1007 12:00: Medical, Oral Tablet 00 AM PC) METFORMIN:8 EDT 53261 Amoxicillin AMOXIC 09/07/ CAPSULE 15 complet IFEANYI XICILLIN [facility] (St 500 MG Oral ILLIN: 2019 ed [facility] Capsule [id number] 12:00: Medical, AMOXICILLIN 00 AM PC) :[id number] EDT 24 HR METOPR 09/07/ TABLET, 30 complet METOPROLO L [facility] (St metoprolol OLOL:8 2019 EXTENDED ed Jerzy n's succinate 24035 12:00: RELEASE Medi donald, 25 MG 00 AM PC) Extended EDT Release Oral Tablet METOPROLOL: 028911 Amlodipine AMLODI 08/30/ TABLET 90 complet AMLOD IPINE [facility] (St 5 MG Oral PINE:1 2019 ed [facility] Tablet 47221 12:00: Medical, AMLODIPINE: 00 AM PC) 147094 EDT Metformin METFOR 07/28/ TABLET 90 complet METFOR MIN [facility] (St hydrochlori MIN:86 2019 ed [facility] de 500 MG 1007 12:00: Medical, Oral Tablet 00 AM PC) METFORMIN:8 EDT 42205 Sulfamethox SULFAM 06/11/ TABLET 14 complet SULF AMETHOXA [facility] (St azole 800 ETHOXA 2019 ed ZOLE-TRIMETH [facility] MG / ZOLE-T 12:00: OPRIM Medical, Trimethopri RIMETH 00 AM PC) m 160 MG OPRIM: EDT Oral Tablet [id number] SULFAMETHOX AZOLE-TRIME THOPRIM:198 335 Prednisone PREDNI 05/06/ TABLET 120 complet PREDN ISONE [facility] (St 5 MG Oral SONE:3 2019 ed [facility] Tablet 07624 12:00: Medical, PREDNISONE: 00 AM PC) [id number] EST Famotidine FAMOTI 04/28/ TABLET 90 complet FAMOT IDINE [facility] (St 40 MG Oral DINE:2 2019 ed [facility] Tablet 09803 12:00: Medical, FAMOTIDINE: 00 AM PC) [id number] EST atorvastati ATORVA 04/28/ TABLET 90 complet ATOR VASTATIN [facility] (St n 40 MG STATIN 2019 ed [facility] Oral Tablet :49994 12:00: Medi donald, ATORVASTATI 1 00 AM PC) [id number] EST Insurance Providers Payer name Policy type Policy ID Covered Covered constitution party's Policy P pavan / Coverage constitution party ID relationship to Carbajal Inf ormation type carbajal [facility] [id number] [place] MEDICARE [id number] PART B DOWNSTATE GHI [id number] 1 [id number] [place] MEDICARE [id number] 1 [id number] PART B DOWNSTATE PPO [id number] SP [id number] GHI CBP OUTPT [id number] SP [id number] MEDICARE [id number] SP [id number] BC PPO [id number] SP [id number] GHI CBP OUTPT [id number] SP [id number] BC [id number] [id number] SP [id number] BC PPO [id number] SP [id number] GHI CBP OUTPT [id number] SP [id number] MEDICARE [id number] SP [id number] BC PPO [id number] SP [id number] GHI PPO [id number] SP [id number] GHI CBP OUTPT [id number] SP [id number] BC PPO [id number] SP [id number] MEDICARE [id number] SP [id number] Problems, Conditions, and Diagnoses Code Display Name Description Problem Type Effective Data Sour ce(s) Dates R91.8 Other nonspecific OTHER NONSPECIFIC Problem 09/08/2019 [facility] (St abnormal finding of ABNORMAL FINDING 12:00:00 [facility], ) Z85.038 Personal history of PERSONAL HISTORY Problem 09/08/2019 MED[facility] (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[facility], ) intestine INTESTINE N39.0 Urinary tract URINARY TRACT Problem 09/08/2019 MED[facility] ( St infection, site not INFECTION, SITE 12:00:00 AM [facility] specified NOT SPECIFIED [facility], ) Z01.818 Encounter for other ENCOUNTER FOR Problem 09/08/2019 ME DGEN (St preprocedural OTHER 12:00:00 AM [facility] examination PREPROCEDURAL [facility] Medical, P C) EXAMINATION R91.8 Other nonspecific OTHER NONSPECIFIC Problem 09/08/2019 MED[facility] (St abnormal finding of ABNORMAL FINDING 12:00:00 A M [facility], ) Z85.038 Personal history of PERSONAL HISTORY Problem 09/08/2019 MED[facility] (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[facility], ) intestine INTESTINE N39.0 Urinary tract URINARY TRACT Problem 09/08/2019 MED[facility] ( St infection, site not INFECTION, SITE 12:00:00 AM [facility] specified NOT SPECIFIED EDT Medical, ) Z01.818 Encounter for other ENCOUNTER FOR Problem 09/08/2019 ME DGEN (St preprocedural OTHER 12:00:00 AM [facility] examination PREPROCEDURAL EDT Medical, P C) EXAMINATION R82.71 Bacteriuria BACTERIURIA Problem 02/10/2019 [facility] (St 12:00:00 AM [facility] EST Medical, ) Z23 Encounter for ENCOUNTER FOR Problem 02/10/2019 MED[facility] ( St immunization IMMUNIZATION 12:00:00 AM [facility], ) R82.71 Bacteriuria BACTERIURIA Problem 02/10/2019 [facility] (St 12:00:00 AM [facility] EST Medical, ) Z23 Encounter for ENCOUNTER FOR Problem 02/10/2019 MED[facility] ( St immunization IMMUNIZATION 12:00:00 AM [facility], ) Surgeries/Procedures Procedure Description Date Indications Data Source(s) Documentation of current 12/30/2019 [facility] ([facility] medications (procedure) 12:00:00 AM EDT negro, ) Documentation of current 12/30/2019 [facility] ([facility] medications (procedure) 12:00:00 AM EDT [facility]ro, PC) Documentation of current 12/30/2019 [facility] ([facility] medications (procedure) 12:00:00 AM EDT [facility], PC) Documentation of current 12/30/2019 [facility] ([facility] medications (procedure) 12:00:00 AM EDT negro, ) OFFICE OUTPATIENT VISIT 25 12/30/2019 Les RIDDLEN ([facility] MINUTES 12:00:00 AM EDT [facility], PC) Documentation of current 09/08/2019 MED [facility] ([facility] medications (procedure) 12:00:00 AM EDT [facility], PC) Documentation of current 09/08/2019 [facility] ([facility] medications (procedure) 12:00:00 AM EDT negro, PC) Documentation of current 09/08/2019 [facility] ([facility] medications (procedure) 12:00:00 AM EDT negro, PC) Documentation of current 09/08/2019 [facility] ([facility] medications (procedure) 12:00:00 AM EDT negro, PC) Documentation of current 09/08/2019 [facility] ([facility] medications (procedure) 12:00:00 AM EDT [facility], PC) Documentation of current 09/08/2019 MED [facility] ([facility] medications (procedure) 12:00:00 AM EDT [facility], PC) Documentation of current 09/08/2019 [facility] ([facility] medications (procedure) 12:00:00 AM EDT [facility]yical, PC) Documentation of current 09/08/2019 [facility] ([facility] medications (procedure) 12:00:00 AM EDT negro, PC) Documentation of current 09/08/2019 [facility] ([facility] medications (procedure) 12:00:00 AM EDT edical, PC) Documentation of current 09/08/2019 [facility] ([facility] medications (procedure) 12:00:00 AM EDT mistyical, PC) Documentation of current 09/08/2019 [facility] ([facility] medications (procedure) 12:00:00 AM EDT negro, PC) Documentation of current 09/08/2019 MED [facility] ([facility] medications (procedure) 12:00:00 AM EDT negro, PC) Documentation of current 09/08/2019 MED [facility] ([facility] medications (procedure) 12:00:00 AM EDT negro, PC) Documentation of current 09/08/2019 MED [facility] ([facility] medications (procedure) 12:00:00 AM EDT negro, PC) ECG ROUTINE ECG W/LEAST 12 09/08/2019 EDGEN ([facility] LDS W/I&R 12:00:00 AM [facility], ) Documentation of current 09/08/2019 MED GEN ([facility] medications (procedure) 12:00:00 AM EDT negro, PC) Documentation of current 09/08/2019 MED [facility] ([facility] medications (procedure) 12:00:00 AM EDT negro, PC) Documentation of current 09/08/2019 MED [facility] ([facility] medications (procedure) 12:00:00 AM EDT mistyical, PC) Documentation of current 09/08/2019 [facility] ([facility] medications (procedure) 12:00:00 AM EDT negro, PC) Documentation of current 09/08/2019 [facility] ([facility] medications (procedure) 12:00:00 AM EDT mistyical, PC) Documentation of current 09/08/2019 [facility] ([facility] medications (procedure) 12:00:00 AM EDT edical, PC) Documentation of current 09/08/2019 [facility] ([facility] medications (procedure) 12:00:00 AM EDT mistyical, PC) Documentation of current 09/08/2019 [facility] ([facility] medications (procedure) 12:00:00 AM EDT mistyical, PC) Documentation of current 09/08/2019 [facility] ([facility] medications (procedure) 12:00:00 AM EDT edical, PC) Documentation of current 09/08/2019 [facility] ([facility] medications (procedure) 12:00:00 AM EDT mistyical, PC) Documentation of current 09/08/2019 MED [facility] ([facility] medications (procedure) 12:00:00 AM EDT negro, PC) Documentation of current 09/08/2019 MED [facility] ([facility] medications (procedure) 12:00:00 AM EDT negro, PC) Documentation of current 09/08/2019 MED [facility] ([facility] medications (procedure) 12:00:00 AM EDT negro, PC) ECG ROUTINE ECG W/LEAST 12 09/08/2019 EDGEN ([facility] LDS W/I&R 12:00:00 AM [facility], ) Documentation of current 06/12/2019 MED [facility] ([facility] medications (procedure) 12:00:00 AM EDT negro, PC) Documentation of current 06/12/2019 MED [facility] ([facility] medications (procedure) 12:00:00 AM EDT negro, PC) Documentation of current 06/12/2019 MED [facility] ([facility] medications (procedure) 12:00:00 AM EDT edical, PC) Documentation of current 06/12/2019 MED [facility] ([facility] medications (procedure) 12:00:00 AM EDT mistyical, PC) Documentation of current 06/12/2019 MED [facility] ([facility] medications (procedure) 12:00:00 AM EDT Les tom, PC) BRIEF COMMUNICATION 06/12/2019 [facility] ( [facility] TECHNOLOGY-BASED SERVICE 12:00:00 AM EDT Medical, PC) Documentation of current 06/12/2019 MED [facility] ([facility] medications (procedure) 12:00:00 AM EDT CARLENE Mckeon) Documentation of current 06/12/2019 MED [facility] ([facility] medications (procedure) 12:00:00 AM EDT Les tom PC) Documentation of current 06/12/2019 MED [facility] ([facility] medications (procedure) 12:00:00 AM EDT Les tom, PC) Documentation of current 06/12/2019 MED [facility] ([facility] medications (procedure) 12:00:00 AM EDT Les tom, PC) Documentation of current 06/12/2019 MED [facility] ([facility] medications (procedure) 12:00:00 AM EDT Les tom, PC) BRIEF COMMUNICATION 06/12/2019 [facility] ( [facility] TECHNOLOGY-BASED SERVICE 12:00:00 AM ED Medical, PC) Documentation of current 02/10/2019 MED [facility] ([facility] medications (procedure) 12:00:00 AM EST Les tom, PC) Documentation of current 02/10/2019 MED [facility] ([facility] medications (procedure) 12:00:00 AM EST Les tom PC) Documentation of current 02/10/2019 [facility] ([facility] medications (procedure) 12:00:00 AM EST Les tom PC) Documentation of current 02/10/2019 MED [facility] ([facility] medications (procedure) 12:00:00 AM CARLENE Hopper) Documentation of current 02/10/2019 MED [facility] ([facility] medications (procedure) 12:00:00 AM MEGAN tom, PC) Documentation of current 02/10/2019 MED [facility] ([facility] medications (procedure) 12:00:00 AM EST Les tom PC) Documentation of current 02/10/2019 MED [facility] ([facility] medications (procedure) 12:00:00 AM MEGAN tom PC) Documentation of current 02/10/2019 MED [facility] ([facility] medications (procedure) 12:00:00 AM MEGAN tom, PC) Administration of 02/10/2019 [facility] ([facility] pneumococcal vaccine 12:00:00 AM EST Medi donald, PC) OFFICE OUTPATIENT VISIT 15 02/10/2019 Les RIDDLEN ([facility] MINUTES 12:00:00 AM EST Medical, PC) PNEUMOCOCCAL POLYSAC 02/10/2019 [facility] ([facility] VACCINE 23-V 2 />YR 12:00:00 AM EST Medic al, PC) SUBQ/IM Documentation of current 02/10/2019 MED GEN ([facility] medications (procedure) 12:00:00 AM EST Les tom, PC) Documentation of current 02/10/2019 MED [facility] ([facility] medications (procedure) 12:00:00 AM EST Les jayical, PC) Documentation of current 02/10/2019 MED [facility] ([facility] medications (procedure) 12:00:00 AM EST Les jayical, PC) Documentation of current 02/10/2019 MED [facility] ([facility] medications (procedure) 12:00:00 AM EST Les jayical, PC) Documentation of current 02/10/2019 MED GEN ([facility] medications (procedure) 12:00:00 AM EST Les jayical, PC) Documentation of current 02/10/2019 MED [facility] ([facility] medications (procedure) 12:00:00 AM EST Les jayical, PC) Documentation of current 02/10/2019 MED [facility] ([facility] medications (procedure) 12:00:00 AM EST Les jayical, PC) Documentation of current 02/10/2019 MED [facility] ([facility] medications (procedure) 12:00:00 AM EST Les jayical, PC) Administration of 02/10/2019 [facility] ([facility] pneumococcal vaccine 12:00:00 AM EST Medi donald, PC) OFFICE OUTPATIENT VISIT 15 02/10/2019 Les JANESSAN ([facility] MINUTES 12:00:00 AM EST Medical, PC) PNEUMOCOCCAL POLYSAC 02/10/2019 [facility] ([facility] VACCINE 23-V 2 />YR 12:00:00 AM EST Medic al, PC) SUBQ/IM Results ID Date Data Source [id number] 09/19/2019 02:00:00 PM EDT [facility] Name Value Range Interpretation Description Data Sup porting Code Source(s) Document(s ) SARS [facility] coronavirus 2 RNA This lab was ordered by ROBBIE SPANGLER and reported by [facility]. 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 Diet and Exercise Well Balanced Diet Daily or Most days Exercise Frequency 5-6 times a week (walks 4 miles 4-5X/week, lifts weights) Alcohol Use Alcohol Use Social Smoking 12/30/2019 Unknown if ever completed Unknown if ever MEDG EN (St 12:00:00 AM smoked smoked [facility], [facility]T PC) Smoking 09/20/2019 Tobacco Status: completed Tobacco Status: MEDG EN (St 12:00:00 AM Former smoker Former smoker [facility], T Tobacco details: Tobacco details: PC ) Cigarettes Smoking Cigarettes Smokin g History: 10-15 History: 10-15 Years Daily Years Daily Smokin Pack Smokin Pack Smoking Stop Date: Smoking Stop Date : 1971 Marital Status Status Household Members 2 Household Member s 2 Lives Independently Lives Independen tly Yes Number of Yes Number of Children 2 Children 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 Diet and Exercise Well Balanced Diet Daily or Most days Exercise Frequency 5-6 times a week (walks 4 miles 4-5X/week, lifts weights) Alcohol Use Alcohol Use Social Smoking 09/20/2019 Unknown if ever completed Unknown if ever MEDG EN (St 12:00:00 AM smoked smoked [facility], [facility]T PC) Vital Signs ID Date Data Source UNK Name Value Range Interpretation Code Description Data Source(s) Heart rate 71 /min 71 /min [facility] ([facility] , [facility]) Respiratory rate 15 /min 15 /min [facility] ( [facility] Body temperature 98.2 F 98.2 F [facility] ( [facility] Inhaled oxygen 99 % 99 % [facility] ([facility]) Body mass index 30.2 kg/m2 30.2 kg/m2 MEDGEN (S t (BMI) [Ratio] [facility]) Diastolic blood 85 mm[Hg] 85 mm[Hg] MED[facility] ([facility]) Systolic blood 155 mm[Hg] 155 mm[Hg] [facility] ([facility]) Body weight 196 lb 196 lb [facility] ([facility] Body height 67.5 in 67.5 in [facility] ([facility] Heart rate 72 /min 72 /min [facility] ([facility] Respiratory rate 15 /min 15 /min [facility] ( [facility] Body temperature 98 F 98 F [facility] ( [facility] Inhaled oxygen 97 % 97 % [facility] ([facility]) Body mass index 30.4 kg/m2 30.4 kg/m2 MED[facility] (S t (BMI) [Ratio] [facility]) Diastolic blood 83 mm[Hg] 83 mm[Hg] MED[facility] ([facility]) Systolic blood 155 mm[Hg] 155 mm[Hg] [facility] ([facility]) Body weight 197 lb 197 lb [facility] Body height 67.5 in 67.5 in [facility] ([facility] Heart rate 72 /min 72 /min [facility] Respiratory rate 15 /min 15 /min [facility] ( [facility] Body temperature 98 F 98 F [facility] ( [facility] Inhaled oxygen 97 % 97 % [facility] ([facility]) Body mass index 30.4 kg/m2 30.4 kg/m2 MED[facility] (S t (BMI) [Ratio] [facility]) Diastolic blood 83 mm[Hg] 83 mm[Hg] [facility] ([facility]) Systolic blood 155 mm[Hg] 155 mm[Hg] [facility] ([facility]) Body weight 197 lb 197 lb [facility] ([facility] Body height 67.5 in 67.5 in [facility] ([facility] Heart rate 65 /min 65 /min [facility] ([facility] Respiratory rate 16 /min 16 /min [facility] ( [facility] Body temperature 97.8 F 97.8 F [facility] ( [facility] Inhaled oxygen 96 % 96 % [facility] ([facility]) Body mass index 31 kg/m2 31 kg/m2 MED[facility] (S t (BMI) [Ratio] [facility], ) Diastolic blood 77 mm[Hg] 77 mm[Hg] MED[facility] ([facility]) Systolic blood 156 mm[Hg] 156 mm[Hg] [facility] ([facility]) Body weight 201 lb 201 lb [facility] ([facility] Body height 67.5 in 67.5 in [facility] ([facility]) Heart rate 65 /min 65 /min [facility] ([facility]) Respiratory rate 16 /min 16 /min [facility] ( [facility] Body temperature 97.8 F 97.8 F [facility] ( [facility]) Inhaled oxygen 96 % 96 % [facility] ([facility]) Body mass index 31 kg/m2 31 kg/m2 MEDGEN (S t (BMI) [Ratio] [facility], ) Diastolic blood 77 mm[Hg] 77 mm[Hg] MEDGEN (S t pressure [facility]) Systolic blood 156 mm[Hg] 156 mm[Hg] MED[facility] ([facility]) Body weight 201 lb 201 lb [facility] ([facility] Body height 67.5 in 67.5 in [facility] ([facility]
[2020-01-07 16:13] VITALS: BMI 27.9
--- OUTSIDE RECORDS SUMMARY | 2020-01-14 08:01 | XMS ---
:1945 Author Organization [facility] Care Team Providers Name Role Phone KarlycarrolldominiqueRashi C Unavailable Androne, C Unavailable Androne, C Unavailable Androne, C Unavailable Androne, C Unavailable Androne, C Unavailable Androne, C Unavailable Androne, C Unavailable Androne, C Unavailable Fader, M Unavailable Fader, M Unavailable Fader, M Unavailable Fader, M Unavailable Fader, M Unavailable Fader, M Unavailable Fader, M Unavailable Fader, M Unavailable Fader, M Unavailable Fader, M Unavailable Fader, M Unavailable Fader, M Unavailable Les Green Unavailable Les Green Unavailable Joie Obando Unavailable Unavailable Re-disclosure Warning The records that you [...] is protected by Article 27-F of the [facility] Public Health law. If you continue you may haveaccess to information: Regarding HIV / AIDS; Provided by facilities licensed or operated by the [facility] Office of Mental Health; or Provided by the [facility] Office for People With Developmental Disabilities. If such information is present, then the following [facility] mandated warning applies: This information [...] law may result in a fine or custodial sentence or both. A general authorization for the release of medical or other information is NOT sufficient authorization for further disclosure. Allergies and Adverse Reactions Type Description Substance Reaction Status Data Source(s ) 3 NO KNOWN ALLERGIES Clindamycin 150 MG Oral NEXTGEN ([facility] Tablet [Clintabs] [facility]) Encounters Encounter Providers Location Date Indications Data Source(s ) Outpatient Attender: Eleuterio 01/12/2020 NEXTGEN ( [facility]linReferrer: 11:20:00 AM [facility] Eleuterio Obando [facility] Medical [facility] up PC) Attender: Rashi 01/08/2020 [facility] ([facility] 12:00:00 AM Medical, PC) EDT Office Attender: Rashi Buitrago 01/08/2020 12:00:00 AM EDT [facility] ([facility]) Office Attender: Rashi Buitrago 01/08/2020 12:00:00 AM EDT MED[facility] ([facility]) Office Attender: Rashi Buitrago 01/08/2020 12:00:00 AM EDT MEDGEN ([facility]) Office Attender: Rashi Buitrago 01/08/2020 12:00:00 AM EDT MEDGEN ([facility]) Office Attender: Rashi Buitrago 01/08/2020 12:00:00 AM EDT MEDGEN ([facility]) Office Attender: Keenan [...] Green 12/30/2019 12:00:00 AM E DT MEDGEN ([facility]) Office Attender: Keenan Green 12/30/2019 [...] Green 09/08/2019 12:00:00 AM E DT MEDGEN ([facility], [facility]) Office Attender: Keenan Green 09/08/2019 12:00:00 AM E DT MED[facility] ([facility]) Office Attender: Keenan Green 09/08/2019 12:00:00 AM E DT MEDGEN ([facility], [facility]) Office Attender: Keenan Green 09/08/2019 12:00:00 AM E DT MEDGEN ([facility]) Office Attender: Keenan Green 09/08/2019 12:00:00 AM E DT MEDGEN ([facility], [facility]) Office Attender: Keenan Green 09/08/2019 12:00:00 AM E DT MEDGEN ([facility]) Office Attender: Keenan Green 09/08/2019 12:00:00 AM E DT MEDGEN ([facility]) Office Immunizations Vaccine Date Status Description Data Source(s) pneumococcal 02/10/2019 completed MEDGEN ([facility] polysaccharide PPV23 12:00:00 AM EST [facility]i [facility], PC) pneumococcal 02/10/2019 completed MEDGEN ([facility] polysaccharide PPV23 12:00:00 AM EST [facility]i [facility], PC) pneumococcal 02/10/2019 completed MEDGEN ([facility] polysaccharide PPV23 12:00:00 AM EST [facility]i [facility], PC) Medications Medication Brand Start Product Dose Route Administrative Pharmacy [facility] Indications Reaction Description Data Name Date Form Instructions Instructions Source(s) BACTRIM: 01/07/ complet BACTRIM MED GEN (St 2020 [facility] 12:00: Medical, 00 AM PC) EDT Sulfamethox BACTRI 01/07/ TABLET 10 complet BACT RIM DS MEDGEN (St azole 800 M 2019 ed [facility] MG / DS:849 12:00: Medical, Trimethopri 580 00 AM PC) m 160 MG EDT Oral Tablet [Bactrim] BACTRIM [id number] 24 HR METOPR 12/29/ TABLET, 90 complet METOPROLO L MEDGEN (St metoprolol OLOL:2019 EXTENDED ed [facility] succinate 90337 12:00: RELEASE Medi donald, 25 MG 00 AM PC) Extended EDT Release Oral Tablet METOPROLOL: [id number] 24 HR METOPR 12/29/ TABLET, 90 complet METOPROLO L MEDGEN (St metoprolol OLOL:2019 EXTENDED ed [facility] succinate 20328 12:00: RELEASE Medi donald, 25 MG 00 AM PC) Extended EDT Release Oral Tablet METOPROLOL: [id number] Amlodipine AMLODI 12/06/ TABLET 90 complet AMLOD IPINE MEDGEN (St 5 MG Oral PINE:2019 ed [facility] Tablet 12245 12:00: Medical, AMLODIPINE: 00 AM PC) [id number] EDT Amlodipine AMLODI 12/06/ TABLET 90 complet AMLOD IPINE MEDGEN (St 5 MG Oral PINE:2019 ed [facility] Tablet 17501 12:00: Medical, AMLODIPINE: 00 AM PC) [id number] EDT doxycycline DOXYCY 11/30/ CAPSULE 20 complet DOX YCYCLINE MEDGEN (St hyclate 100 BHATT: 2019 ed [facility] MG Oral [id number] 12:00: Medical, Capsule 8 00 AM PC) DOXYCYCLINE EDT :[id number] Amoxicillin AMOXIC 11/30/ CAPSULE 30 complet IFEANYI XICILLIN MEDGEN (St 500 MG Oral ILLIN: 2019 ed [facility] Capsule 237346 12:00: Medical, AMOXICILLIN 00 AM PC) :[id number] EDT Amoxicillin AMOXIC 11/30/ CAPSULE 30 complet IFEANYI XICILLIN MEDGEN (St 500 MG Oral ILLIN: 2019 ed [facility] Capsule [id number] 12:00: Medical, AMOXICILLIN 00 AM PC) :[id number] EDT doxycycline DOXYCY 11/30/ CAPSULE 20 complet DOX YCYCLINE MEDGEN (St hyclate 100 BHATT: 2019 ed [facility] MG Oral [id number] 12:00: Medical, Capsule 8 00 AM PC) DOXYCYCLINE EDT :[id number] Prednisone PREDNI 11/23/ TABLET 90 complet PREDN ISONE MEDGEN (St 5 MG Oral SONE:3 2019 ed [facility] Tablet 94878 12:00: Medical, PREDNISONE: 00 AM PC) [id number] EDT Prednisone PREDNI 11/23/ TABLET 90 complet PREDN ISONE MEDGEN (St 5 MG Oral SONE:3 2019 ed [facility] Tablet 70776 12:00: Medical, PREDNISONE: 00 AM PC) 198933 EDT atorvastati ATORVA 10/18/ TABLET 90 complet ATOR VASTATIN MEDGEN (St n 40 MG STATIN 2020 ed [facility] Oral Tablet :93356 12:00: Medi donald, ATORVASTATI 1 00 AM PC) N:[id number] EDT atorvastati ATORVA 10/18/ TABLET 90 complet ATOR VASTATIN MEDGEN (St n 40 MG STATIN 2019 ed [facility] Oral Tablet :29575 12:00: Medi donald, ATORVASTATI 1 00 AM PC) N:488298 EDT Famotidine FAMOTI 10/08/ TABLET 90 complet FAMOT IDINE MEDGEN (St 40 MG Oral DINE:2 2019 ed [facility] Tablet 74514 12:00: Medical, FAMOTIDINE: 00 AM PC) 473500 EDT Metformin METFOR 10/08/ TABLET 90 complet METFOR MIN MEDGEN (St hydrochlori MIN:86 2019 ed [facility] de 500 MG 1007 12:00: Medical, Oral Tablet 00 AM PC) METFORMIN:8 EDT 48256 Metformin METFOR 10/08/ TABLET 90 complet METFOR MIN MEDGEN (St hydrochlori MIN:86 2019 ed [facility] de 500 MG 1007 12:00: Medical, Oral Tablet 00 AM PC) METFORMIN:8 EDT 11985 Famotidine FAMOTI 10/08/ TABLET 90 complet FAMOT IDINE MEDGEN (St 40 MG Oral DINE:2 2019 ed [facility] Tablet 03637 12:00: Medical, FAMOTIDINE: 00 AM PC) [id number] EDT Amoxicillin AMOXIC 09/07/ CAPSULE 15 complet IFEANYI XICILLIN MEDGEN (St 500 MG Oral ILLIN: 2020 ed [facility] Capsule 229287 12:00: Medical, AMOXICILLIN 00 AM PC) :[id number] EDT 24 HR METOPR 09/07/ TABLET, 30 complet METOPROLO L MEDGEN (St metoprolol OLOL:8 2019 EXTENDED ed [facility] succinate 81221 12:00: RELEASE Medi donald, 25 MG 00 AM PC) Extended EDT Release Oral Tablet METOPROLOL: [id number] Amlodipine AMLODI 08/30/ TABLET 90 complet AMLOD IPINE MEDGEN (St 5 MG Oral PINE:1 2019 ed [facility] Tablet 69719 12:00: Medical, AMLODIPINE: 00 AM PC) 664954 EDT Metformin METFOR 07/28/ TABLET 90 complet METFOR MIN MEDGEN (St hydrochlori MIN:86 2019 ed [facility] de 500 MG 1007 12:00: Medical, Oral Tablet 00 AM PC) METFORMIN:8 EDT 35968 Sulfamethox SULFAM 06/11/ TABLET 14 complet SULF AMETHOXA MEDGEN (St azole 800 ETHOXA 2019 ed ZOLE-TRIMETH [facility] MG / ZOLE-T 12:00: OPRIM Medical, Trimethopri RIMETH 00 AM PC) m 160 MG OPRIM: EDT Oral Tablet [id number] SULFAMETHOX AZOLE-TRIME THOPRIM:198 335 Prednisone PREDNI 05/06/ TABLET 120 complet PREDN ISONE MEDGEN (St 5 MG Oral SONE:3 2019 ed [facility] Tablet 10416 12:00: Medical, PREDNISONE: 00 AM PC) [id number] EST Famotidine FAMOTI 04/28/ TABLET 90 complet FAMOT IDINE MEDGEN (St 40 MG Oral DINE:2 2019 ed [facility] Tablet 41934 12:00: Medical, FAMOTIDINE: 00 AM PC) [id number] EST atorvastati ATORVA 04/28/ TABLET 90 complet ATOR VASTATIN MEDGEN (St n 40 MG STATIN 2019 ed [facility] Oral Tablet :51119 12:00: Medi donald, ATORVASTATI 1 00 AM PC) N:[id number] EST gabapentin NEURON 01/23/ SIG needs to be RP NEXTGEN 100 MG Oral TIN 2006 updated ([facility] Capsule 12:00: Medical - [Neurontin] 00 AM [facility] o 100 mg 100 EST Medical mg Group PC) This may be an active medication. No end date is available. Insurance Providers Payer name Policy type Policy ID Covered Covered libertarian's Policy P pavan / Coverage libertarian ID relationship to Carbajal Inf ormation type carbajal MEDICARE [id number] SP [id number] BC PPO [id number] SP [id number] GHI CBP OUTPT [id number] SP [id number] GHI Group [id number] 1 [id number] [facility] Medicare [id number] 1 [id number] Part B Par Providers [facility] [id number] [place] [id number] PART B DOWNSTATE GHI [id number] 1 [id number] [place] [id number] 1 [id number] PART B DOWNSTATE MEDICARE [id number] SP [id number] BC PPO [id number] SP [id number] GHI CBP OUTPT [id number] SP [id number] BC PPO [id number] SP [id number] BC PPO [id number] SP [id number] GHI CBP OUTPT [id number] SP [id number] MEDICARE [id number] SP [id number] BC PPO [id number] SP [id number] GHI PPO [id number] SP [id number] GHI CBP OUTPT [id number] SP [id number] BC PPO [id number] SP [id number] MEDICARE [id number] SP [id number] Problems, Conditions, and Diagnoses Code Display Name Description Problem Type Effective Data Sour ce(s) Dates R91.8 Other nonspecific OTHER NONSPECIFIC Problem 09/08/2019 MEDGEN (St abnormal finding ABNORMAL FINDING 12:00:00 AM [facility] of lung field OF LUNG FIELD [facility] Medical, ) Z85.038 Personal history PERSONAL HISTORY Problem 09/08/2019 ME DGEN (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, ) intestine INTESTINE N39.0 Urinary tract URINARY TRACT Problem 09/08/2019 MEDGEN ( St infection, site INFECTION, SITE 12:00:00 AM [facility] not specified NOT SPECIFIED [facility] Medical, ) Z01.818 Encounter for ENCOUNTER FOR Problem 09/08/2019 MEDGEN ( St other OTHER 12:00:00 AM [facility] preprocedural PREPROCEDURAL [facility] Medical, ) examination EXAMINATION R91.8 Other nonspecific OTHER NONSPECIFIC Problem 09/08/2019 MEDGEN (St abnormal finding ABNORMAL FINDING 12:00:00 AM J [facility] of lung field OF LUNG FIELD T [facility], ) Z85.038 Personal history PERSONAL HISTORY Problem 09/08/2019 ME DGEN (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 T [facility], ) intestine INTESTINE N39.0 Urinary tract URINARY TRACT Problem 09/08/2019 MEDGEN ( St infection, site INFECTION, SITE 12:00:00 AM [facility] not specified NOT SPECIFIED EDT Medical, ) Z01.818 Encounter for ENCOUNTER FOR Problem 09/08/2019 MEDGEN ( St other OTHER 12:00:00 AM [facility] preprocedural PREPROCEDURAL T [facility], ) examination EXAMINATION R91.8 Other nonspecific OTHER NONSPECIFIC Problem 09/08/2019 MEDGEN (St abnormal finding ABNORMAL FINDING 12:00:00 AM J [facility] of lung field OF LUNG FIELD T [facility], ) Z85.038 Personal history PERSONAL HISTORY Problem 09/08/2019 ME DGEN (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 T [facility], ) intestine INTESTINE N39.0 Urinary tract URINARY TRACT Problem 09/08/2019 MEDGEN ( St infection, site INFECTION, SITE 12:00:00 AM [facility] n[facility] not specified NOT SPECIFIED T Medical, ) Z01.818 Encounter for ENCOUNTER FOR Problem 09/08/2019 MEDGEN ( St other OTHER 12:00:00 AM [facility] preprocedural PREPROCEDURAL [facility], ) examination EXAMINATION R82.71 Bacteriuria BACTERIURIA Problem 02/10/2019 MEDGEN (St 12:00:00 AM [facility], ) Z23 Encounter for ENCOUNTER FOR Problem 02/10/2019 MEDGEN ( St immunization IMMUNIZATION 12:00:00 AM [facility], ) R82.71 Bacteriuria BACTERIURIA Problem 02/10/2019 MEDGEN (St 12:00:00 AM [facility], ) Z23 Encounter for ENCOUNTER FOR Problem 02/10/2019 MEDGEN ( St immunization IMMUNIZATION 12:00:00 AM [facility], ) R82.71 Bacteriuria BACTERIURIA Problem 02/10/2019 MEDGEN (St 12:00:00 AM [facility], ) Z23 Encounter for ENCOUNTER FOR Problem 02/10/2019 MEDGEN ( St immunization IMMUNIZATION 12:00:00 AM [facility], ) R39.9 Unspecified UTI symptoms Diagnosis 01/12/2020 NEXTGEN symptoms and signs 11:20:00 AM ([facility] involving the [facility] genitourinary [facility] al system Group PC) N39.0 Urinary tract UTI (urinary tract Diagnosis 01/12/2020 NEX TGEN infection, site infection), 11:20:00 AM ([facility] unt not specified bacterial [facility] [place] [facility] ) Surgeries/Procedures Procedure Description Date Indications Data Source(s) URINALYSIS NONAUTO W/O URINALYSIS NONAUTO 01/12/2020 NEXTGEN SCOPE W/O SCOPE 12:00:00 AM ([facility] Medical - Pr [facility] [place] [facility] ) OFFICE/OUTPATIENT VISIT OFFICE/OUTPATIENT 01/12/2020 NEXTGEN NEW VISIT NEW 12:00:00 AM ([facility] Medical [facility] [place] [facility] ) Documentation of 01/08/2020 MEDGEN ([facility] current medications 12:00:00 AM Medical, PC) (procedure) EDT Documentation of 01/08/2020 MEDGEN ([facility] current medications 12:00:00 AM Medical, PC) (procedure) EDT OFFICE OUTPATIENT VISIT 01/08/2020 MEDG EN ([facility] 15 MINUTES 12:00:00 AM Medical, PC) EDT Documentation of 12/30/2019 MEDGEN ([facility] current medications 12:00:00 AM Medical, PC) (procedure) EDT Documentation of 12/30/2019 MEDGEN ([facility] current medications 12:00:00 AM Medical, PC) (procedure) EDT Documentation of 12/30/2019 MEDGEN ([facility] current medications 12:00:00 AM Medical, PC) (procedure) EDT Documentation of 12/30/2019 MEDGEN ([facility] current medications 12:00:00 AM Medical, PC) (procedure) EDT Documentation of 12/30/2019 MEDGEN ([facility] current medications 12:00:00 AM Medical, PC) (procedure) EDT Documentation of 12/30/2019 MEDGEN ([facility] current medications 12:00:00 AM Medical, PC) (procedure) EDT Documentation of 12/30/2019 MEDGEN ([facility] current medications 12:00:00 AM Medical, PC) (procedure) EDT OFFICE OUTPATIENT VISIT 12/30/2019 MEDG EN ([facility] 25 MINUTES 12:00:00 AM Medical, PC) EDT Documentation of 12/30/2019 MEDGEN ([facility] current medications 12:00:00 AM Medical, PC) (procedure) EDT Documentation of 12/30/2019 MEDGEN ([facility] current medications 12:00:00 AM Medical, PC) (procedure) EDT Documentation of 12/30/2019 MEDGEN ([facility] current medications 12:00:00 AM Medical, PC) (procedure) EDT Documentation of 12/30/2019 MEDGEN ([facility] current medications 12:00:00 AM Medical, PC) (procedure) EDT OFFICE OUTPATIENT VISIT 12/30/2019 MEDG EN ([facility] 25 MINUTES 12:00:00 AM Medical, PC) EDT Documentation of 09/08/2019 MEDGEN ([facility] current medications 12:00:00 AM Medical, PC) (procedure) EDT Documentation of 09/08/2019 MEDGEN ([facility] current medications 12:00:00 AM Medical, PC) (procedure) EDT Documentation of 09/08/2019 MEDGEN ([facility] current medications 12:00:00 AM Medical, PC) (procedure) EDT Documentation of 09/08/2019 MEDGEN ([facility] current medications 12:00:00 AM Medical, PC) (procedure) EDT Documentation of 09/08/2019 MEDGEN ([facility] current medications 12:00:00 AM Medical, PC) (procedure) EDT Documentation of 09/08/2019 MEDGEN ([facility] current medications 12:00:00 AM Medical, PC) (procedure) EDT Documentation of 09/08/2019 MEDGEN ([facility] current medications 12:00:00 AM Medical, PC) (procedure) EDT Documentation of 09/08/2019 MEDGEN ([facility] current medications 12:00:00 AM Medical, PC) (procedure) EDT Documentation of 09/08/2019 MEDGEN ([facility] current medications 12:00:00 AM Medical, PC) (procedure) EDT Documentation of 09/08/2019 MEDGEN ([facility] current medications 12:00:00 AM Medical, PC) (procedure) EDT Documentation of 09/08/2019 MEDGEN ([facility] current medications 12:00:00 AM Medical, PC) (procedure) EDT Documentation of 09/08/2019 MEDGEN ([facility] current medications 12:00:00 AM Medical, PC) (procedure) EDT Documentation of 09/08/2019 MEDGEN ([facility] current medications 12:00:00 AM Medical, PC) (procedure) EDT Documentation of 09/08/2019 MEDGEN ([facility] current medications 12:00:00 AM Medical, PC) (procedure) EDT ECG ROUTINE ECG W/LEAST 09/08/2019 MEDG EN ([facility] 12 LDS W/I&R 12:00:00 AM Medical, PC) EDT Documentation of 09/08/2019 MEDGEN ([facility] current medications 12:00:00 AM Medical, PC) (procedure) EDT Documentation of 09/08/2019 MEDGEN ([facility] current medications 12:00:00 AM Medical, PC) (procedure) EDT Documentation of 09/08/2019 MEDGEN ([facility] current medications 12:00:00 AM Medical, PC) (procedure) EDT Documentation of 09/08/2019 MEDGEN ([facility] current medications 12:00:00 AM Medical, PC) (procedure) EDT Documentation of 09/08/2019 MEDGEN ([facility] current medications 12:00:00 AM Medical, PC) (procedure) EDT Documentation of 09/08/2019 MEDGEN ([facility] current medications 12:00:00 AM Medical, PC) (procedure) EDT Documentation of 09/08/2019 MEDGEN ([facility] current medications 12:00:00 AM Medical, PC) (procedure) EDT Documentation of 09/08/2019 MEDGEN ([facility] current medications 12:00:00 AM Medical, PC) (procedure) EDT Documentation of 09/08/2019 MEDGEN ([facility] current medications 12:00:00 AM Medical, PC) (procedure) EDT Documentation of 09/08/2019 MEDGEN ([facility] current medications 12:00:00 AM Medical, PC) (procedure) EDT Documentation of 09/08/2019 MEDGEN ([facility] current medications 12:00:00 AM Medical, PC) (procedure) EDT Documentation of 09/08/2019 MEDGEN ([facility] current medications 12:00:00 AM Medical, PC) (procedure) EDT Documentation of 09/08/2019 MEDGEN ([facility] current medications 12:00:00 AM Medical, PC) (procedure) EDT Documentation of 09/08/2019 MEDGEN ([facility] current medications 12:00:00 AM Medical, PC) (procedure) EDT ECG ROUTINE ECG W/LEAST 09/08/2019 MEDG EN ([facility] 12 LDS W/I&R 12:00:00 AM Medical, PC) EDT Documentation of 09/08/2019 MEDGEN ([facility] current medications 12:00:00 AM Medical, PC) (procedure) EDT Documentation of 09/08/2019 MEDGEN ([facility] current medications 12:00:00 AM Medical, PC) (procedure) EDT Documentation of 09/08/2019 MEDGEN ([facility] current medications 12:00:00 AM Medical, PC) (procedure) EDT Documentation of 09/08/2019 MEDGEN ([facility] current medications 12:00:00 AM Medical, PC) (procedure) EDT Documentation of 09/08/2019 MEDGEN ([facility] current medications 12:00:00 AM Medical, PC) (procedure) EDT Documentation of 09/08/2019 MEDGEN ([facility] current medications 12:00:00 AM Medical, PC) (procedure) EDT Documentation of 09/08/2019 MEDGEN ([facility] current medications 12:00:00 AM Medical, PC) (procedure) EDT Documentation of 09/08/2019 MEDGEN ([facility] current medications 12:00:00 AM Medical, PC) (procedure) EDT Documentation of 09/08/2019 MEDGEN ([facility] current medications 12:00:00 AM Medical, PC) (procedure) EDT Documentation of 09/08/2019 MEDGEN ([facility] current medications 12:00:00 AM Medical, PC) (procedure) EDT Documentation of 09/08/2019 MEDGEN ([facility] current medications 12:00:00 AM Medical, PC) (procedure) EDT Documentation of 09/08/2019 MEDGEN ([facility] current medications 12:00:00 AM Medical, PC) (procedure) EDT Documentation of 09/08/2019 MEDGEN ([facility] current medications 12:00:00 AM Medical, PC) (procedure) EDT ECG ROUTINE ECG W/LEAST 09/08/2019 MEDG EN ([facility] 12 LDS W/I&R 12:00:00 AM Medical, PC) EDT Documentation of 06/12/2019 MEDGEN ([facility] current medications 12:00:00 AM Medical, PC) (procedure) EDT Documentation of 06/12/2019 MEDGEN ([facility] current medications 12:00:00 AM Medical, PC) (procedure) EDT Documentation of 06/12/2019 MEDGEN ([facility] current medications 12:00:00 AM Medical, PC) (procedure) EDT Documentation of 06/12/2019 MEDGEN ([facility] current medications 12:00:00 AM Medical, PC) (procedure) EDT Documentation of 06/12/2019 MEDGEN ([facility] current medications 12:00:00 AM Medical, PC) (procedure) EDT BRIEF COMMUNICATION 06/12/2019 MEDGEN ( [facility] TECHNOLOGY-BASED 12:00:00 AM Medical, PC ) SERVICE EDT Documentation of 06/12/2019 MEDGEN ([facility] current medications 12:00:00 AM Medical, PC) (procedure) EDT Documentation of 06/12/2019 MEDGEN ([facility] current medications 12:00:00 AM Medical, PC) (procedure) EDT Documentation of 06/12/2019 MEDGEN ([facility] current medications 12:00:00 AM Medical, PC) (procedure) EDT Documentation of 06/12/2019 MEDGEN ([facility] current medications 12:00:00 AM Medical, PC) (procedure) EDT Documentation of 06/12/2019 MEDGEN ([facility] current medications 12:00:00 AM Medical, PC) (procedure) EDT BRIEF COMMUNICATION 06/12/2019 MEDGEN ( [facility] TECHNOLOGY-BASED 12:00:00 AM Medical, PC ) SERVICE EDT Documentation of 06/12/2019 MEDGEN ([facility] current medications 12:00:00 AM Medical, PC) (procedure) EDT Documentation of 06/12/2019 MEDGEN ([facility] current medications 12:00:00 AM Medical, PC) (procedure) EDT Documentation of 06/12/2019 MEDGEN ([facility] current medications 12:00:00 AM Medical, PC) (procedure) EDT Documentation of 06/12/2019 MEDGEN ([facility] current medications 12:00:00 AM Medical, PC) (procedure) EDT Documentation of 06/12/2019 MEDGEN ([facility] current medications 12:00:00 AM Medical, PC) (procedure) EDT BRIEF COMMUNICATION 06/12/2019 MEDGEN ( [facility] TECHNOLOGY-BASED 12:00:00 AM Medical, PC ) SERVICE EDT Documentation of 02/10/2019 MEDGEN ([facility] current medications 12:00:00 AM Medical, PC) (procedure) EST Documentation of 02/10/2019 MEDGEN ([facility] current medications 12:00:00 AM Medical, PC) (procedure) EST Documentation of 02/10/2019 MEDGEN ([facility] current medications 12:00:00 AM Medical, PC) (procedure) EST Documentation of 02/10/2019 MEDGEN ([facility] current medications 12:00:00 AM Medical, PC) (procedure) EST Documentation of 02/10/2019 MEDGEN ([facility] current medications 12:00:00 AM Medical, PC) (procedure) EST Documentation of 02/10/2019 MEDGEN ([facility] current medications 12:00:00 AM Medical, PC) (procedure) EST Documentation of 02/10/2019 MEDGEN ([facility] current medications 12:00:00 AM Medical, PC) (procedure) EST Documentation of 02/10/2019 MEDGEN ([facility] current medications 12:00:00 AM Medical, PC) (procedure) EST Administration of 02/10/2019 MEDGEN ([facility] pneumococcal vaccine 12:00:00 AM Medical , PC) EST OFFICE OUTPATIENT VISIT 02/10/2019 MEDG EN ([facility] 15 MINUTES 12:00:00 AM Medical, PC) EST PNEUMOCOCCAL POLYSAC 02/10/2019 MEDGEN ([facility] VACCINE 23-V 2 />YR 12:00:00 AM Medical, PC) SUBQ/IM EST Documentation of 02/10/2019 MEDGEN ([facility] current medications 12:00:00 AM Medical, PC) (procedure) EST Documentation of 02/10/2019 MEDGEN ([facility] current medications 12:00:00 AM Medical, PC) (procedure) EST Documentation of 02/10/2019 MEDGEN ([facility] current medications 12:00:00 AM Medical, PC) (procedure) EST Documentation of 02/10/2019 MEDGEN ([facility] current medications 12:00:00 AM Medical, PC) (procedure) EST Documentation of 02/10/2019 MEDGEN ([facility] current medications 12:00:00 AM Medical, PC) (procedure) EST Documentation of 02/10/2019 MEDGEN ([facility] current medications 12:00:00 AM Medical, PC) (procedure) EST Documentation of 02/10/2019 MEDGEN ([facility] current medications 12:00:00 AM [facility]) (procedure) EST Documentation of 02/10/2019 [facility] ([facility] current medications 12:00:00 AM [facility]) (procedure) EST Administration of 02/10/2019 [facility] ([facility] pneumococcal vaccine 12:00:00 AM [facility] , [facility]) EST OFFICE OUTPATIENT VISIT 02/10/2019 MEDG EN ([facility] 15 MINUTES 12:00:00 AM [facility], [facility]) EST PNEUMOCOCCAL POLYSAC 02/10/2019 [facility] ([facility] VACCINE 23-V 2 />YR 12:00:00 AM [facility]) SUBQ/IM EST Documentation of 02/10/2019 [facility] ([facility] current medications 12:00:00 AM [facility]) (procedure) EST Documentation of 02/10/2019 [facility] ([facility] current medications 12:00:00 AM [facility], [facility]) (procedure) EST Documentation of 02/10/2019 [facility] ([facility] current medications 12:00:00 AM [facility], [facility]) (procedure) EST Documentation of 02/10/2019 [facility] ([facility] current medications 12:00:00 AM [facility], [facility]) (procedure) EST Documentation of 02/10/2019 [facility] ([facility] current medications 12:00:00 [facility], [facility]) (procedure) EST Documentation of 02/10/2019 [facility] ([facility] current medications 12:00:00 AM [facility]) (procedure) EST Documentation of 02/10/2019 [facility] ([facility] current medications 12:00:00 AM [facility], [facility]) (procedure) EST Documentation of 02/10/2019 [facility] ([facility] current medications 12:00:00 AM [facility], [facility]) (procedure) EST Administration of 02/10/2019 [facility] ([facility] pneumococcal vaccine 12:00:00 AM [facility] , PC) EST OFFICE OUTPATIENT VISIT 02/10/2019 MED[facility] EN ([facility] 15 MINUTES 12:00:00 AM Medical, ) EST PNEUMOCOCCAL POLYSAC 02/10/2019 [facility] ([facility] VACCINE 23-V 2 />YR 12:00:00 AM Medical, ) SUBQ/IM EST Results ID Date Data Source [id number] 01/10/2020 09:06:00 AM EST [facility] Name Value Range Interpretation Description Data Sup porting Code Source(s) Document(s ) SARS [facility] coronavirus 2 RNA This lab was ordered by ROBBIE eldridge [facility] and reported by [facility]. ID Date Data Source [id number] 09/19/2019 02:00:00 PM EDT [facility] Name Value Range Interpretation Description Data Sup porting Code Source(s) Document(s ) SARS [facility] coronavirus 2 RNA This lab was ordered by ROBBIE eldridge [facility] and reported by [facility]. Procedure Social History Code Duration Value Status Description Data Source(s ) Smoking 01/08/2020 Tobacco Status: completed Tobacco Status: MEDG EN (St 12:00:00 AM Former smoker Former smoker [facility], EDT Tobacco details: Tobacco details: PC ) Cigarettes Smoking Cigarettes Smokin g History: 10-15 History: 10-15 Years Daily Years Daily Smokin Pack Smokin Pack Smoking Stop Date: Smoking Stop Date : 1971 Marital 1972 Marital Status Status Household Members 2 Household Member s 2 Lives Independently Lives Independen tly Yes Number of Yes Number of Children 2 Children 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 Diet and Exercise Well Balanced Diet Daily or Most days Exercise Frequency 5-6 times a week (walks 4 miles 4-5X/week, lifts weights) Alcohol Use Alcohol Use Social Smoking 01/08/2020 Unknown if ever completed Unknown if ever MEDG EN (St 12:00:00 AM smoked smoked [facility], EDT PC) Smoking 12/30/2019 Tobacco Status: completed Tobacco Status: MEDG EN (St 12:00:00 AM Former smoker Former smoker [facility], T Tobacco details: Tobacco details: PC ) Cigarettes Smoking Cigarettes Smokin g History: 10- History: 10-15 Years Daily Years Daily Smokin Pack Smokin Pack Smoking Stop Date: Smoking Stop Date : 1971 Marital 1971 Marital Status Status Household Members 2 Household Member s 2 Lives Independently Lives Independen tly Yes Number of Yes Number of Children 2 Children 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 Diet and Exercise Well [...] Interpretation Code Description Data Source(s) Heart rate 80 /min 80 /min [facility] ([facility]) Body temperature 98.3 F 98.3 F [facility] ( [facility]) Body mass index 28.9 kg/m2 28.9 kg/m2 [facility] (S t (BMI) [Ratio] [facility], ) Diastolic blood 80 mm[Hg] 80 mm[Hg] [facility] (S t pressure [facility] [place], [place]) Systolic blood 130 mm[Hg] 130 mm[Hg] [facility] ([facility]) Body weight 196 lb 196 lb [facility] ([facility]) Body height 69 in 69 in [facility] ([facility]) Heart rate 71 /min 71 /min [facility] ([facility]) Respiratory rate 15 /min 15 /min [facility] ( [facility]) Body temperature 98.2 F 98.2 F [facility] ( [facility]) Inhaled oxygen 99 % 99 % [facility] ([facility]) Body mass index 30.2 kg/m2 30.2 kg/m2 [facility] ([facility] ([facility]] [facility]) Diastolic blood 85 mm[Hg] 85 mm[Hg] MED[facility] (S [facility]) Systolic blood 155 mm[Hg] 155 mm[Hg] [facility] ([facility]) Body weight 196 lb 196 lb [facility] ([facility]) Body height 67.5 in 67.5 in [facility] ([facility]) Heart rate 71 /min 71 /min [facility] ([facility]) Respiratory rate 15 /min 15 /min [facility] ( [facility]) Body temperature 98.2 F 98.2 F [facility] ( [facility]) Inhaled oxygen 99 % 99 % [facility] ([facility]) Body mass index 30.2 kg/m2 30.2 kg/m2 [facility] (S t (BMI) [Ratio] [facility]) Diastolic blood 85 mm[Hg] 85 mm[Hg] [facility] (S t [facility]) Systolic blood 155 mm[Hg] 155 mm[Hg] [facility] ([facility]) Body weight 196 lb 196 lb [facility] ([facility]) Body height 67.5 in 67.5 in [facility] ([facility]) Heart rate 72 /min 72 /min [facility] ([facility]) Respiratory rate 15 /min 15 /min [facility] ( [facility]) Body temperature 98 F 98 F [facility] ( [facility]) Inhaled oxygen 97 % 97 % [facility] ([facility]) Body mass index 30.4 kg/m2 30.4 kg/m2 [facility] (S t (BMI) [Ratio] [facility], ) Diastolic blood 83 mm[Hg] 83 mm[Hg] [facility] (S t pressure [facility] [place] [place]) Systolic blood 155 mm[Hg] 155 mm[Hg] [facility] ([facility]) Body weight 197 lb 197 lb [facility] ([facility]) Body height 67.5 in 67.5 in [facility] ([facility]) Heart rate 72 /min 72 /min [facility] ([facility]) Respiratory rate 15 /min 15 /min [facility] ( [facility]) Body temperature 98 F 98 F [facility] ( [facility]) Inhaled oxygen 97 % 97 % [facility] ([facility]) Body mass index 30.4 kg/m2 30.4 kg/m2 [facility] (S t (BMI) [Ratio] [facility], ) Diastolic blood 83 mm[Hg] 83 mm[Hg] [facility] (S t pressure [facility] [place], [place]) Systolic blood 155 mm[Hg] 155 mm[Hg] [facility] ([facility]) Body weight 197 lb 197 lb [facility] ([facility]) Body height 67.5 in 67.5 in [facility] ([facility]) Heart rate 72 /min 72 /min [facility] ([facility]) Respiratory rate 15 /min 15 /min [facility] ( [facility]) Body temperature 98 F 98 F [facility] ( [facility]) Inhaled oxygen 97 % 97 % [facility] ([facility]) Body mass index 30.4 kg/m2 30.4 kg/m2 [facility] (S t ([facility]) [Ratio] [facility]) Diastolic blood 83 mm[Hg] 83 mm[Hg] MED[facility] (S [facility]) Systolic blood 155 mm[Hg] 155 mm[Hg] [facility] ([facility]) Body weight 197 lb 197 lb [facility] ([facility]) Body height 67.5 in 67.5 in [facility] ([facility]) Heart rate 65 /min 65 /min [facility] ([facility]) Respiratory rate 16 /min 16 /min [facility] ( [facility]) Body temperature 97.8 F 97.8 F [facility] ( [facility]) Inhaled oxygen 96 % 96 % [facility] ([facility]) Body mass index 31 kg/m2 31 kg/m2 [facility] (S t (BMI) [Ratio] [facility]) Diastolic blood 77 mm[Hg] 77 mm[Hg] [facility] (S [facility]) Systolic blood 156 mm[Hg] 156 mm[Hg] [facility] ([facility]) Body weight 201 lb 201 lb [facility] ([facility]) Body height 67.5 in 67.5 in [facility] ([facility]) Heart rate 65 /min 65 /min [facility] ([facility]) Respiratory rate 16 /min 16 /min [facility] ( [facility]) Body temperature 97.8 F 97.8 F [facility] ( [facility]) Inhaled oxygen 96 % 96 % [facility] ([facility]) Body mass index 31 kg/m2 31 kg/m2 [facility] (S t (BMI) [Ratio] [facility]) Diastolic blood 77 mm[Hg] 77 mm[Hg] [facility] (S t [facility]) Systolic blood 156 mm[Hg] 156 mm[Hg] [facility] ([facility]) Body weight 201 lb 201 [facility] Body height 67.5 in 67.5 in [facility] ([facility]) Heart rate 65 /min 65 /min [facility] Respiratory rate 16 /min 16 /min [facility] ( [facility]) Body temperature 97.8 F 97.8 F [facility] ( [facility]) Inhaled oxygen 96 % 96 % [facility] Body mass index 31 kg/m2 31 kg/m2 [facility] (S (BMI) [Ratio] [facility]) Diastolic blood 77 mm[Hg] 77 mm[Hg] [facility] (S t pressure [facility] [place] [place]) Systolic blood 156 mm[Hg] 156 mm[Hg] [facility] ([facility]) Body weight 201 lb 201 lb [facility] Body height 67.5 in 67.5 in [facility] ([facility])
[2020-01-14] MEDS ORDERED: PROPOFOL 20 ML ONE ×2 (08:04)
[2020-01-14 09:55] VITALS: TEMP 98
[2020-01-14 09:57] VITALS: BP 110/68; PULSE 68
--- NOTE | 2020-01-18 15:49 | PATH ---
Surgical Pathology Report Patient Name: RE [facility]. Rec. #: [id number] /Age/Gender: 1945 (Age: 74) / M Account: [id number] Location: [facility] Taken: 01/14/2020 Received: 01/15/2020 Reported: 01/18/2020 Physicians: Rolando Melvin M.D. Specimen(s) Received A: BIOPSY POLYP RIGHT COLON B: BIOPSY POLYP LEFT COLON Clinical History History of colon cancer, history of polyps, family history of colon cancer Postoperative diagnosis: Colon polyps Final Diagnosis A. RIGHT COLON POLYP, POLYPECTOMY: TUBULAR ADENOMA. B. LEFT COLON POLYP, POLYPECTOMY: TUBULAR ADENOMA. Electronically Signed Chiquis Oliver M.D. Gross Description A. Received in formalin, labeled "biopsy polyp right colon" is a morales, irregular portion of soft tissue measuring 0.7 cm. in greatest dimension. The specimen is submitted in toto in one cassette. B. Received in formalin, labeled "biopsy polyp left colon" are 2 morales, irregular portions of soft tissue measuring 0.1 and 0.3 cm. in greatest dimension. The specimens are submitted in toto in one cassette. /01/15/2020 saudi01/15/2020
== END 2020-01-14 09:58 | disposition home or self-care (01) ==
LOC: FASU-ENDO 07:57
PROVIDERS: ATTEND Internal Medicine Gastroenterology
PROC: 0DBM8ZX Excision of Descending Colon, Via Natural or Artificial Opening Endoscopic, Diagnostic (ICD-10-PCS; 2020-01-14)
PROC: 0DBK8ZX Excision of Ascending Colon, Via Natural or Artificial Opening Endoscopic, Diagnostic (ICD-10-PCS; principal; 2020-01-14 08:53)
DX: D12.2 Benign neoplasm of ascending colon (principal); D12.4 Benign neoplasm of descending colon; Z09 Encounter for follow-up examination after completed treatment for conditions other than malignant neoplasm; Z85.038 Personal history of other malignant neoplasm of large intestine; Z86.010 Personal history of colon polyps; Z98.0 Intestinal bypass and anastomosis status
CPT/HCPCS: 82962; 88305-TC